=== PATIENT | female | born 1945 | race Caucasian/White ===

== ENCOUNTER 2020-07-31 09:28 | Outpatient (REF) | payer MEDICARE, SELFPAY ==
[2020-07-31 12:27] LABS: Alanine Aminotransferase 13 U/L (0-31); Anion Gap 16 (12-20); Aspartate Amino Transferase 22 U/L (5-31); Blood Urea Nitrogen 16 mg/dL (9-16); Calcium 9.3 mg/dL (8.4-10.2); Carbon Dioxide 26 mmol/L (22-29); Chloride 104 mmol/L (96-108); Cholesterol 137 mg/dL; Estimated Glomerular Filt Rate > 60; Glucose Fasting 150 mg/dL (60-99); HDL Cholesterol 56 mg/dL; LDL Cholesterol Calculated 65 mg/dl; Potassium 4.7 mmol/L (3.3-5.1); Sodium 141 mmol/L (135-145); Triglycerides 81 mg/dL
== END 2020-07-31 09:29 | disposition home or self-care (01) ==
LOC: HO.HMGCLDS 09:28
PROVIDERS: PCP Internal Medicine; Visit Provider Internal Medicine
DX: E11.65 Type 2 diabetes mellitus with hyperglycemia (principal); E11.29 Type 2 diabetes mellitus with other diabetic kidney complication; R80.9 Proteinuria, unspecified; E87.5 Hyperkalemia; E78.5 Hyperlipidemia, unspecified
CPT/HCPCS: 36415; 80048; 80061; 84450; 84460

== ENCOUNTER 2020-08-07 10:27 | Outpatient (REF) | payer MEDICARE, SELFPAY ==
--- NOTE | ~2020-08-07 | MM_ITS ---
EXAMINATION: MM SCREENING DIGITAL BREAST TOMOSYNTHESIS, BILATERAL CLINICAL INFORMATION: Screening. Asymptomatic. The lifetime risk of breast cancer based on the Tyrer-Cuzick Model is 3.5%. COMPARISON: Mammography: May 26, 2019 and studies dating back to April 21, 2012 TECHNIQUE: Digital breast tomosynthesis is performed in both the craniocaudal and mediolateral oblique views along with computer-aided detection (CAD). Synthesized 2D images are generated from the tomosynthesis. FINDINGS: There are scattered areas of fibroglandular density (ACR BI-RADS breast composition Category b). There are no significant masses, abnormal calcifications, or other abnormalities. MM/MM tomosynthesis screening BI IMPRESSION: There are no significant changes from prior study. ASSESSMENT: BI-RADS 1: Negative RECOMMENDATION: Routine annual mammography screening. This patient's information was entered into a reminder system with a target due date for their next mammogram.
== END 2020-08-07 10:28 | disposition home or self-care (01) ==
LOC: HO.MAMMO 10:27
PROVIDERS: Visit Provider Internal Medicine
DX: Z12.31 Encounter for screening mammogram for malignant neoplasm of breast (principal)
CPT/HCPCS: 77063; 77067

== ENCOUNTER 2021-02-04 08:57 | Outpatient (REF) | payer MEDICARE, SELFPAY ==
[2021-02-04 11:17] LABS: MANUAL DIFF FLAG NO
[2021-02-04 11:32] LABS: Basophils Absolute Auto 0.1 X10*3/uL (0.0-0.2); Basophils Percent Auto 0.9 % (0-2); Eosinophils Absolute Auto 0.4 X10*3/uL (0.0-0.4); Eosinophils Percent Auto 4.2 % (0-4); Hematocrit 36.8 % (37-47); Hemoglobin 11.5 g/dl (12.0-16.0); Imm Gran Abs Auto 0.02 X10*3/uL (0.00-0.03); Imm Gran Pct Auto 0.2 % (0.0-0.4); Lymphocytes Absolute Auto 3.1 X10*3/uL (1.2-4.9); Lymphocytes Percent Auto 35.7 % (20-40); Mean Corpuscular HGB Conc 31.3 g/dl (31.0-35.0); Mean Corpuscular Hemoglobin 27.4 pg (27.0-33.0); Mean Corpuscular Volume 87.6 fL (80-98); Mean Platelet Volume 10.9 fL (9.4-12.3); Monocytes Absolute Auto 0.8 X10*3/uL (0.1-1.2); Monocytes Percent Auto 9.2 % (2-11); Neutrophils Absolute Auto 4.4 X10*3/uL (2.0-8.3); Neutrophils Percent Auto 49.8 % (45-73); Platelet Count 326 X10*3/uL (160-400); Red Cell Distribution Width 14.9 % (11.0-16.0); White Blood Count 8.8 X10*3/uL (4.8-10.8)
[2021-02-04 11:41] LABS: Estimated Average Glucose 151 mg/dL; Hemoglobin A1c % 6.9 %
[2021-02-04 11:51] LABS: Alanine Aminotransferase 14 U/L (0-31); Albumin Level 4.4 g/dL (3.5-5.0); Alkaline Phosphatase 49 U/L (39-117); Anion Gap 16 (12-20); Aspartate Amino Transferase 21 U/L (5-31); Bilirubin Total 0.5 mg/dL (0.0-1.0); Blood Urea Nitrogen 21 mg/dL (9-16); Calcium 9.8 mg/dL (8.4-10.2); Carbon Dioxide 25 mmol/L (22-29); Chloride 105 mmol/L (96-108); Cholesterol 145 mg/dL; Estimated Glomerular Filt Rate 54; Glucose Fasting 149 mg/dL (60-99); HDL Cholesterol 58 mg/dL; LDL Cholesterol Calculated 66 mg/dl; Potassium 5.3 mmol/L (3.3-5.1); Sodium 141 mmol/L (135-145); Total Protein 6.9 g/dL (6.5-8.0); Triglycerides 108 mg/dL
[2021-02-04 12:15] LABS: TSH reflex Free T4 1.17 uIU/mL (0.32-4.0); Vitamin D 25-OH Total 44.3 ng/mL (>30)
== END 2021-02-04 08:58 | disposition home or self-care (01) ==
LOC: HO.HMGCLDS 08:57
PROVIDERS: PCP Internal Medicine; Visit Provider Internal Medicine
DX: E11.9 Type 2 diabetes mellitus without complications (principal); E78.5 Hyperlipidemia, unspecified; I10 Essential (primary) hypertension; Z78.0 Asymptomatic menopausal state
CPT/HCPCS: 36415; 80053; 80061; 82306; 83036; 84443; 85025

== ENCOUNTER 2021-07-22 09:10 | Outpatient (REF) | payer MEDICARE, SELFPAY ==
[2021-07-22 12:27] LABS: Alanine Aminotransferase 14 U/L (0-31); Anion Gap 12 (12-20); Aspartate Amino Transferase 19 U/L (5-31); Blood Urea Nitrogen 18 mg/dL (9-16); Calcium 9.7 mg/dL (8.4-10.2); Carbon Dioxide 26 mmol/L (22-29); Chloride 106 mmol/L (96-108); Cholesterol 141 mg/dL; Estimated Glomerular Filt Rate > 60; Glucose Fasting 178 mg/dL (60-99); HDL Cholesterol 59 mg/dL; LDL Cholesterol Calculated 63 mg/dl; Potassium 5.2 mmol/L (3.3-5.1); Sodium 139 mmol/L (135-145); Triglycerides 99 mg/dL
[2021-07-22 12:28] LABS: Vitamin D 25-OH Total 38.9 ng/mL (>30)
[2021-07-22 12:33] LABS: Creatinine Urine 104.02 mg/dL; Microalbum/Creatinine Ratio Ur 101.9 ug/mg cr
[2021-07-22 12:40] LABS: Estimated Average Glucose 163 mg/dL; Hemoglobin A1c % 7.3 %
== END 2021-07-22 09:11 | disposition home or self-care (01) ==
LOC: HO.HMGCLDS 09:10
PROVIDERS: PCP Internal Medicine; Visit Provider Internal Medicine
DX: E11.9 Type 2 diabetes mellitus without complications (principal); E78.5 Hyperlipidemia, unspecified; I10 Essential (primary) hypertension; Z78.0 Asymptomatic menopausal state
CPT/HCPCS: 36415; 80048; 80061; 82043; 82306; 83036; 84450; 84460

== ENCOUNTER 2021-08-13 10:33 | Outpatient (REF) | payer MEDICARE, SELFPAY ==
--- NOTE | ~2021-08-13 | MM_ITS ---
EXAMINATION: MM SCREENING DIGITAL BREAST TOMOSYNTHESIS, BILATERAL CLINICAL INFORMATION: Screening. Asymptomatic. The lifetime risk of breast cancer based on the Tyrer-Cuzick Model is 3%. COMPARISON: Mammography: 08/07/2020, 05/26/2019, 03/18/2018 TECHNIQUE: Digital breast tomosynthesis is performed in both the craniocaudal and mediolateral oblique views along with computer-aided detection (CAD). Synthesized 2D images are generated from the tomosynthesis. FINDINGS: There are scattered areas of fibroglandular density (ACR BI-RADS breast composition Category b). There are no significant masses, abnormal calcifications, or other abnormalities. Parenchymal pattern is similar to prior studies. There is no developing density or architectural abnormality. The axilla and skin contours are unremarkable. No significant changes. MM/MM tomosynthesis screening BI IMPRESSION: No mammographic evidence of malignancy. ASSESSMENT: BI-RADS 1: Negative RECOMMENDATION: Routine annual mammography screening. This patient's information was entered into a reminder system with a target due date for their next mammogram.
== END 2021-08-13 10:34 | disposition home or self-care (01) ==
LOC: HO.MAMMO 10:33
PROVIDERS: PCP Internal Medicine; Visit Provider Internal Medicine
DX: Z12.31 Encounter for screening mammogram for malignant neoplasm of breast (principal)
CPT/HCPCS: 77063; 77067

== ENCOUNTER 2022-02-01 13:11 | Outpatient (REF) | payer OTHER, MEDICARE, SELFPAY ==
--- NOTE | ~2022-02-01 | XR_ITS ---
EXAMINATION: XR RIBS, RIGHT CLINICAL INFORMATION: Probably linear COMPARISON: No prior exam available. TECHNIQUE: Chest frontal and 3 views oblique ribs. FINDINGS: RIBS: Nondisplaced subtle fracture anterior right eighth rib. LUNGS AND GOLDEN: Both lungs are clear. PLEURA: Normal. Costophrenic angles are sharp, no pneumothorax. HEART: The heart is normal in size. MEDIASTINUM: The mediastinum is within normal limits.. XR/XR ribs RT min 3V w CXR1V IMPRESSION: 1. Nondisplaced fracture right anterior eighth rib. 2. No radiographic evidence of acute cardiopulmonary disease.
== END 2022-02-01 13:12 | disposition home or self-care (01) ==
LOC: HO.HMGCX 13:11
PROVIDERS: PCP Internal Medicine; Visit Provider Physician Assistant
DX: R07.81 Pleurodynia (principal)
CPT/HCPCS: 71101

== ENCOUNTER 2022-05-28 08:49 | Outpatient (REF) | payer MEDICARE, SELFPAY ==
[2022-05-28 11:43] LABS: MANUAL DIFF FLAG NO
[2022-05-28 11:53] LABS: Basophils Absolute Auto 0.1 X10*3/uL (0.0-0.2); Basophils Percent Auto 1.1 % (0-2); Eosinophils Absolute Auto 0.5 X10*3/uL (0.0-0.4); Eosinophils Percent Auto 5.2 % (0-4); Hemoglobin 11.3 g/dl (12.0-16.0); Imm Gran Abs Auto 0.02 X10*3/uL (0.00-0.03); Imm Gran Pct Auto 0.2 % (0.0-0.4); Lymphocytes Absolute Auto 2.4 X10*3/uL (1.2-4.9); Lymphocytes Percent Auto 27.6 % (20-40); Mean Corpuscular HGB Conc 31.4 g/dl (31.0-35.0); Mean Corpuscular Hemoglobin 27.3 pg (27.0-33.0); Mean Platelet Volume 11.1 fL (9.4-12.3); Monocytes Absolute Auto 0.8 X10*3/uL (0.1-1.2); Monocytes Percent Auto 8.5 % (2-11); Neutrophils Absolute Auto 5.1 x10*3/uL (2.0-8.3); Neutrophils Percent Auto 57.4 % (45-73); Platelet Count 327 X10*3/uL (160-400); Red Blood Count 4.14 X10*6/uL (4.20-5.50); Red Cell Distribution Width 14.1 % (11.0-16.0); White Blood Count 8.8 X10*3/uL (4.8-10.8)
[2022-05-28 12:03] LABS: Creatinine Urine 107.89 mg/dL; Microalbum/Creatinine Ratio Ur 51.9 ug/mg cr
[2022-05-28 12:28] LABS: Alanine Aminotransferase 18 U/L (0-31); Anion Gap 11 (12-20); Aspartate Amino Transferase 20 U/L (5-31); Blood Urea Nitrogen 22 mg/dL (9-16); Calcium 9.8 mg/dL (8.4-10.2); Carbon Dioxide 29 mmol/L (22-29); Chloride 106 mmol/L (96-108); Cholesterol 152 mg/dL; Estimated Glomerular Filt Rate 57; Glucose Fasting 161 mg/dL (60-99); HDL Cholesterol 55 mg/dL; Iron 38 mcg/dL (30-160); LDL Cholesterol Calculated 75 mg/dl; Percent Iron Saturation 10 % (15-50); Sodium 141 mmol/L (135-145); Total Iron Binding Capacity 372 mcg/dL (228-428); Triglycerides 111 mg/dL; Unsaturated Iron Binding 334 ug/dL
[2022-05-28 12:31] LABS: Estimated Average Glucose 166 mg/dL; Hemoglobin A1c % 7.4 %
== END 2022-05-28 08:50 | disposition home or self-care (01) ==
LOC: HO.HMGCLDS 08:49
PROVIDERS: PCP Internal Medicine; Visit Provider Internal Medicine
DX: I10 Essential (primary) hypertension (principal); E78.5 Hyperlipidemia, unspecified; E11.9 Type 2 diabetes mellitus without complications
CPT/HCPCS: 36415; 80048; 80061; 82043; 83036; 83540; 84450; 84460; 85025

== ENCOUNTER 2022-08-18 10:16 | Outpatient (REF) | payer MEDICARE, OTHER, SELFPAY ==
--- NOTE | ~2022-08-18 | MM_ITS ---
EXAMINATION: MM SCREENING DIGITAL BREAST TOMOSYNTHESIS, BILATERAL CLINICAL INFORMATION: Screening. Asymptomatic. The lifetime risk of breast cancer based on the Tyrer-Cuzick Model is 6%. COMPARISON: Mammography: 08/13/2021, 08/07/2020, 05/26/2019, 03/18/2018, 11/03/2016, 09/06/2015, 08/21/2014 TECHNIQUE: Digital breast tomosynthesis is performed in both the craniocaudal and mediolateral oblique views along with computer-aided detection (CAD). Synthesized 2D images are generated from the tomosynthesis. Additional right MLO view is provided. FINDINGS: There are scattered areas of fibroglandular density (ACR BI-RADS breast composition Category b). Breast tissue composition borders on predominantly fatty. Background stromal markings are similar to prior exams. Small parenchymal density posterior medial left breast on CC view is similar to prior studies. There is no developing density or significant mass or architectural abnormality in either breast. The right breast has interval new benign scattered regional small oil cysts lower inner quadrant. There are no abnormal calcifications. The axilla are unremarkable. MM/MM tomosynthesis screening BI IMPRESSION: -No significant changes from prior exams. -Multiple small benign regional oil cysts right lower inner quadrant. ASSESSMENT: BI-RADS 2: Benign RECOMMENDATION: Routine annual mammography screening. This patient's information was entered into a reminder system with a target due date for their next mammogram.
== END 2022-08-18 10:17 | disposition home or self-care (01) ==
LOC: HO.MAMMO 10:16
PROVIDERS: PCP Internal Medicine; Visit Provider Internal Medicine
DX: Z12.31 Encounter for screening mammogram for malignant neoplasm of breast (principal)
CPT/HCPCS: 77063; 77067

== ENCOUNTER 2022-09-05 09:35 | Outpatient (REF) | payer MEDICARE, OTHER, SELFPAY ==
[2022-09-05 11:39] LABS: MANUAL DIFF FLAG NO
[2022-09-05 12:00] LABS: Basophils Absolute Auto 0.1 X10*3/uL (0.0-0.2); Basophils Percent Auto 1.2 % (0-2); Eosinophils Absolute Auto 0.3 X10*3/uL (0.0-0.4); Eosinophils Percent Auto 3.8 % (0-4); Hemoglobin 11.8 g/dl (12.0-16.0); Imm Gran Abs Auto 0.02 X10*3/uL (0.00-0.03); Imm Gran Pct Auto 0.2 % (0.0-0.4); Lymphocytes Absolute Auto 2.9 X10*3/uL (1.2-4.9); Lymphocytes Percent Auto 33.9 % (20-40); Mean Corpuscular HGB Conc 31.1 g/dl (31.0-35.0); Mean Corpuscular Hemoglobin 27.3 pg (27.0-33.0); Mean Corpuscular Volume 87.8 fL (80.0-98.0); Mean Platelet Volume 11.1 fL (9.4-12.3); Monocytes Absolute Auto 0.8 X10*3/uL (0.1-1.2); Monocytes Percent Auto 8.8 % (2-11); Neutrophils Absolute Auto 4.4 x10*3/uL (2.0-8.3); Neutrophils Percent Auto 52.1 % (45-73); Platelet Count 332 X10*3/uL (160-400); Red Blood Count 4.33 X10*6/uL (4.20-5.50); Red Cell Distribution Width 14.6 % (11.0-16.0); White Blood Count 8.5 X10*3/uL (4.8-10.8)
[2022-09-05 12:06] LABS: Estimated Average Glucose 166 mg/dL; Hemoglobin A1c % 7.4 %
[2022-09-05 12:17] LABS: Alanine Aminotransferase 20 U/L (0-31); Anion Gap 13 (12-20); Aspartate Amino Transferase 22 U/L (5-31); Blood Urea Nitrogen 21 mg/dL (9-16); Calcium 9.7 mg/dL (8.4-10.2); Carbon Dioxide 27 mmol/L (22-29); Chloride 105 mmol/L (96-108); Cholesterol 138 mg/dL; Estimated Glomerular Filt Rate > 60; Glucose Fasting 160 mg/dL (60-99); HDL Cholesterol 53 mg/dL; Iron 76 mcg/dL (30-160); LDL Cholesterol Calculated 66 mg/dl; Percent Iron Saturation 20 % (15-50); Potassium 5.1 mmol/L (3.3-5.1); Sodium 140 mmol/L (135-145); Total Iron Binding Capacity 384 mcg/dL (228-428); Triglycerides 95 mg/dL; Unsaturated Iron Binding 308 ug/dL
[2022-09-05 12:42] LABS: Vitamin D 25-OH Total 49.1 ng/mL (>30)
== END 2022-09-05 09:36 | disposition home or self-care (01) ==
LOC: HO.HMGCLDS 09:35
PROVIDERS: PCP Internal Medicine; Visit Provider Internal Medicine
DX: E11.65 Type 2 diabetes mellitus with hyperglycemia (principal); D64.9 Anemia, unspecified; E78.5 Hyperlipidemia, unspecified; I10 Essential (primary) hypertension; N95.9 Unspecified menopausal and perimenopausal disorder
CPT/HCPCS: 36415; 80048; 80061; 82306; 83036; 83540; 84450; 84460; 85025

== ENCOUNTER 2022-12-24 07:59 | Outpatient (REF) | payer MEDICARE, SELFPAY ==
[2022-12-24 11:14] LABS: MANUAL DIFF FLAG NO
[2022-12-24 11:34] LABS: Basophils Absolute Auto 0.1 X10*3/uL (0.0-0.2); Eosinophils Absolute Auto 0.6 X10*3/uL (0.0-0.4); Eosinophils Percent Auto 6.7 % (0-4); Hematocrit 36.7 % (37.0-47.0); Hemoglobin 11.6 g/dl (12.0-16.0); Imm Gran Abs Auto 0.02 X10*3/uL (0.00-0.03); Imm Gran Pct Auto 0.2 % (0.0-0.4); Lymphocytes Absolute Auto 3.2 X10*3/uL (1.2-4.9); Lymphocytes Percent Auto 37.1 % (20-40); Mean Corpuscular HGB Conc 31.6 g/dl (31.0-35.0); Mean Corpuscular Hemoglobin 27.9 pg (27.0-33.0); Mean Corpuscular Volume 88.2 fL (80.0-98.0); Mean Platelet Volume 11.3 fL (9.4-12.3); Monocytes Absolute Auto 0.8 X10*3/uL (0.1-1.2); Monocytes Percent Auto 8.9 % (2-11); Neutrophils Percent Auto 46.1 % (45-73); Platelet Count 281 X10*3/uL (160-400); Red Blood Count 4.16 X10*6/uL (4.20-5.50); Red Cell Distribution Width 14.3 % (11.0-16.0); White Blood Count 8.7 X10*3/uL (4.8-10.8)
[2022-12-24 11:38] LABS: Estimated Average Glucose 151 mg/dL; Hemoglobin A1c % 6.9 %
[2022-12-24 11:55] LABS: Alanine Aminotransferase 21 U/L (0-31); Anion Gap 12 (12-20); Aspartate Amino Transferase 23 U/L (5-31); Blood Urea Nitrogen 19 mg/dL (9-16); Calcium 9.3 mg/dL (8.4-10.2); Carbon Dioxide 27 mmol/L (22-29); Chloride 107 mmol/L (96-108); Cholesterol 153 mg/dL; Estimated Glomerular Filt Rate 55; Glucose Fasting 138 mg/dL (60-99); HDL Cholesterol 56 mg/dL; LDL Cholesterol Calculated 76 mg/dl; Potassium 4.5 mmol/L (3.3-5.1); Sodium 141 mmol/L (135-145); Triglycerides 108 mg/dL
== END 2022-12-24 08:00 | disposition home or self-care (01) ==
LOC: HO.HMGCLDS 07:59
PROVIDERS: PCP Internal Medicine; Visit Provider Internal Medicine
DX: E11.65 Type 2 diabetes mellitus with hyperglycemia (principal); D64.9 Anemia, unspecified; E78.5 Hyperlipidemia, unspecified; I10 Essential (primary) hypertension
CPT/HCPCS: 36415; 80048; 80061; 83036; 84450; 84460; 85025

== ENCOUNTER 2022-12-26 10:20 | Outpatient (AMB) | payer MEDICARE, SELFPAY ==
[2022-12-26 10:24] VITALS: BP 138/70; PULSE 80; O2SAT 98; BMI 27.3
--- NOTE | 2022-12-26 10:24 | A.OFFPC_ITS ---
Vital Signs 12/26/22 10:24 Height 5 ft 4 in Weight 159 lb BMI 27.3 BP 138/70 Blood Pressure Location Lt brachial Position Sitting Pulse 80 Pulse Source Pulse Oximeter Pulse Oximetry (%) 98 Intake Visit Reasons: follow up labs PT prefers in office visit Intake Note: pt is here for review of labs from Accompanied by: Self / Same As Patient Allergies No Known Allergies Allergy (Verified 12/26/22 11:17) Medication List - Last Reconciled 12/26/22 by Irene Cerda MD blood sugar diagnostic (FreeStyle Lite Strips) check fasting blood sugar in a.m. ferrous fumarate 325 mg PO DAILY glipizide 5 mg PO BID 90 days lancets (FreeStyle Lancets) Check fasting blood sugar once a day before meal lisinopril 5 mg PO DAILY metformin 1,000 mg PO BID polyethylene glycol 3350 (Miralax) 17 grams PO DAILY PRN simvastatin 10 mg PO BEDTIME Tobacco use date assessed: 09/08/22 Fall risk assessment: No Falls in past year Last assessed Fall Risk: 12/26/22 Dental Screening Dental Screen Date: 12/26/22 Did you have a dental visit in the last 12 months?: Yes Did you have a dental problem in the last 6 months where you did not have access to dental care?: No Was dental information given to patient?: Patient has dentist HPI follow up labs PT prefers in office visit HPI Details 77-year-old lady with diabetes mellitus, hypertension and dyslipidemia, here today for follow-up. He has been taking her medications as directed, has been compliant with her diet, with recent labs showing lipids, diabetes mellitus well controlled. Blood Pressure stable controlled as well on present medication. It was however noted that her CBC still shows presence of persistent anemia no change from previous tests done. Denies any abnormal bleeding seen, no black stools, no blood in urine. Denies any fatigue, no chest pain no headache or lightheadedness. She has never had a screening colonoscopy done has refused to have it done in the past. She also has been complaining of frequent constipation and intermittent epigastric pain, usually after food intake. [facility] Medical History (Updated 12/26/22 @ 11:18 by Irene Cerda MD) Anemia Chronic epigastric pain Constipation Diabetes mellitus, without long-term current use of insulin Dyslipidemia Essential hypertension Surgical History No pertinent past surgical history Social History Housing: House Alcohol intake: never Patient Tobacco Use Status: Never used Tobacco e-Cigarette/Vaping Use: Never Used service: No Current occupational status: retired Cognitive needs: No Hearing needs: No Vision needs: No Questionnaire Thrive Questionnaire Date Thrive assessed: 09/08/22 VICENTE-7 AMB Questionnaire VICENTE-7 Date VICENTE - 7 assessed: 09/08/22 Source: Developed by Drs. Poncho Parsons, Loyda Ho, Checo Parekh and colleagues, with an educational rachelle from [employer]. Review of Systems Const Denies body aches, Denies fatigue, Denies fever(s), Denies headache(s), Denies lethargy, Denies malaise and Denies weight loss Eyes Details: Goes to [facility] for her routine eye exam/diabetes retinopathy screening Denies change in vision ENT Denies vertigo, Denies dizziness, Denies headache(s), Denies nasal discharge, Denies post nasal drip, Denies sinus pressure and Denies sore throat Card Denies chest pain, Denies rapid heart rate, Denies irregular heart rhythm, Denies leg edema, Denies lightheadedness and Denies dyspnea Resp Denies cough, Denies dyspnea and Denies wheezing GI Reports as per HPI, Denies melena, Denies hematochezia, Denies early satiety, Denies nausea and Denies vomiting Denies urinary frequency, Denies difficulty voiding, Denies nipple discharge, Denies dysuria, Denies urinary incontinence and Denies urinary urgency Musc Denies arthralgias, Denies joint swelling, Denies numbness and Denies tingling Skin/Breast Denies breast swelling, Denies breast pain, Denies breast mass, Denies nipple discharge and Denies rash Neuro Denies Abnormal speech present, Denies vertigo, Denies dizziness, Denies headache(s), Denies numbness and Denies tingling Endo Reports no additional complaints, Denies fatigue, Denies heat intolerance, Denies polyphagia, Denies polydipsia and Denies polyuria Arvin/Lymph Denies easy bleeding and Denies easy bruising Aller/Immun Reports no additional complaints and Denies wheezing Physical exam (Primary Care) Vital Signs: Last Vital Signs Pulse 80 12/26/22 10:24 BP 138/70 12/26/22 10:24 Pulse Ox 98 12/26/22 10:24 BMI result Body Mass Index 27.3 Tobacco/Smoking Status: Tobacco use Status Tobacco use date assessed 09/08/22 12/26/22 10:25 Patient Tobacco Use Status Never used Tobacco 12/26/22 10:25 e-Cigarette/Vaping Use Never Used 12/26/22 10:25 Thrive Assessment: Date of Thrive Assessment Date Thrive assessed 09/08/22 12/26/22 10:25 Const Other: Alert oriented x3, no acute distress noted ambulatory with normal gait [facility] Mouth: Normal oral and palatal mucosa present and moist mucous membranes Eyes General: appearance normal, both eyes and all related structures Neck Neck: Yes full ROM, Yes no lymphadenopathy and Yes supple Resp Auscultation: clear to auscultation bilaterally Cardio Other: S1-S2 present regular rate and rhythm GI Palpation (GI): Soft to palpation, no guarding and no masses Skin General skin exam: no rashes or lesions noted Neuro General: gait normal, tone normal, moves all extremities, no focal motor deficits, CN's II-XI intact bilaterally and normal sensation to monofilament Speech: No Abnormal speech present Extrem General: Yes full ROM, Yes no joint enlargement, Yes no pedal edema and Yes normal gait Results Reviewed Results Reviewed: ENTERED: 12/24/22 REINA CORNELIUS: ORDERED: CBC Auto Diff Test Result Flag Reference Site WBC 8.7 4.8-10.8 X10*3/uL RBC 4.16 L 4.20-5.50 X10*6/uL HGB 11.6 L 12.0-16.0 g/dl HCT 36.7 L 37.0-47.0 % MCV 88.2 80.0-98.0 fL MCH 27.9 27.0-33.0 pg MCHC 31.6 31.0-35.0 g/dl RDW 14.3 11.0-16.0 % PLT 281 160-400 X10*3/uL MPV 11.3 9.4-12.3 fL Neut Pct Auto 46.1 45-73 % ImGran Pct Auto 0.2 0.0-0.4 % Lymp Pct Auto 37.1 20-40 % [place] Pct Auto 8.9 2-11 % Eos Pct Auto 6.7 H 0-4 % Baso Pct Auto 1.0 0-2 % NRBC Pct Auto 0.0 0.0-0.2 /100WBC ANC Neut Abs # 4.0 2.0-8.3 x10*3/uL ImGran Abs Auto 0.02 0.00-0.03 X10*3/uL Lymph Abs Auto 3.2 1.2-4.9 X10*3/uL [place] Abs Auto 0.8 0.1-1.2 X10*3/uL Eos Abs Auto 0.6 H 0.0-0.4 X10*3/uL Baso Abs Auto 0.1 0.0-0.2 X10*3/uL NRBC Abs Auto 0.000 0.0-0.012 X10*3/uL ENTERED: 12/24/22-[address] [facility] [address]: ORDERED: Met Prof Fast, AST, ALT, Lipid Panel Test Result Flag Reference Site Sodium 141 135-145 mmol/L Potassium 4.5 3.3-5.1 mmol/L CL 107 96-108 mmol/L CO2 27 22-29 mmol/L Gap 12 12-20 BUN 19 H 9-16 mg/dL Creat 0.99 0.5-1.4 mg/dL EGFR 55 NOTE: For -Burmese individuals, multiply the result by 1.210. Chronic Kidney Disease: Estimated GFR < 60 mL/min/1.73m2 Severe Kidney Disease: Estimated GFR < 15 mL/min/1.73m2 FBS 138 H 60-99 mg/dL A fasting glucose of 126 mg/dl or greater on more than one occasion is considered diagnostic of diabetes. CA 9.3 8.4-10.2 mg/dL AST (GOT) 23 5-31 U/L ALT (GPT) 21 0-31 U/L Triglyceride 108 mg/dL Desirable Triglyceride: less than 150 mg/dL Borderline High Triglyceride 150-199 mg/dL High Triglyceride: 200-499 mg/dL Very High Triglyceride: greater than or equal to 5OO mg/dL Chol 153 mg/dL Desirable Cholesterol: less than 200 mg/dL Borderline High Cholesterol: 200-239 mg/dL High Cholesterol: greater than 239 mg/dL LDL Calculated 76 mg/dl Desirable LDL: less than 100 mg/dL Near Optimal/Above Optimal LDL: 110-129 mg/dL Borderline High LDL: 130-159 mg/dL High LDL: 160-189 mg/dL Very High LDL: greater than or equal to 190 mg/dL HDL 56 mg/dL Desirable HDL: greater than 40 mg/dL Laboratory Tests 12/24/22 08:05 Estimat Average Glucose 151 Hemoglobin A1c % 6.9 Assessment and Plan Assessment & Plan (1) Chronic epigastric pain: Code(s): R10.13 - Epigastric pain; G89.29 - Other chronic pain Plan: Advised to try taking [id number] omeprazole mg daily. Advised to call if no improvement of symptoms noted after taking his foot least 10 days. Avoidance of eating a lot of acidic foods like tomatoes, spices, avoid greasy or oily foods. Gastroenterology referral ordered for further evaluation management (2) Anemia: Code(s): D64.9 - Anemia, unspecified Plan: Referred to GI for screening colonoscopy (3) Constipation: Code(s): K59.00 - Constipation, unspecified Plan: Advised to take docusate sodium, 100 mg per capsule taken daily, and may continue taking MiraLax as needed no bowel movements for after 2 days. KUB ordered (4) Essential hypertension: Code(s): I10 - Essential (primary) hypertension Plan: Blood pressure at goal of less than 130/80. Continue with current medication. Reinforced importance of following a low sodium diet, getting regular exercise, and lowering stress levels. (5) Dyslipidemia: Code(s): E78.5 - Hyperlipidemia, unspecified Plan: Reviewed recent fasting lipid profile with patient with levels within normal limits . Continue with , in addition to adherence to low-cholesterol diet and regular exercise, at least 30 minutes 3 to 4 times a week. Advised patient to make healthy food choices, eat more fruits, vegetables, whole grains, wild caught fish and low-fat dairy. Limit amount of meat and fried or fatty food products, as well as processed foods and fast foods. Follow-up scheduled with repeat fasting lipid panel in 3 months. (6) Diabetes mellitus, without long-term current use of insulin: Code(s): E11.9 - Type 2 diabetes mellitus without complications Plan: Recent lab results reviewed with patient, with sugar and hemoglobin A1c stable and at goal continue to check fasting blood sugar at home, maintain log and bring to next appointment for review. Reinforced diabetic diet and regular exercise with patient. Counseled regarding importance of yearly diabetes retinopathy screening. Patient advised to inspect feet daily, for any signs of injury, callus or infection. Compliance with diet and regular exercise again stressed. Blood pressure goal is less than 130/80, goal LDL is less than 100 and goal hemoglobin A1c is less than 7% follow-up appointment made in--3-months, after fasting labs done. Orders: Orders XR KUB 12/26/22 G89.29 - Other chronic pain, K59.00 - Constipation, unspecified, R10.13 - Epigastric pain Comprehensive [place]. Panel Fast 03/11/23 D64.9 - Anemia, unspecified, E11.9 - Type 2 diabetes mellitus without complications, E78.5 - Hyperlipidemia, unspecified, I10 - Essential (primary) hypertension Hemoglobin A1c 03/11/23 D64.9 - Anemia, unspecified, E11.9 - Type 2 diabetes mellitus without complications, E78.5 - Hyperlipidemia, unspecified, I10 - Essen tial (primary) hypertension IRON PROFILE 03/11/23 D64.9 - Anemia, unspecified, E11.9 - Type 2 diabetes mellitus without complications, E78.5 - Hyperlipidemia, unspecified, I10 - Essential (primary) hypertension Lipid Panel 03/11/23 D64.9 - Anemia, unspecified, E11.9 - Type 2 diabetes mellitus without complications, E78.5 - Hyperlipidemia, unspecified, I10 - Essential (primary) hypertension Complete Blood Count Auto Diff 03/11/23 D64.9 - Anemia, unspecified, E11.9 - Type 2 diabetes mellitus without complications, E78.5 - Hyperlipidemia, unspecified, I10 - Essential (primary) hypertension Referrals Gastroenterology Referral D64.9 - Anemia, unspecified, G89.29 - Other chronic pain, K59.00 - Constipation, unspecified, R10.13 - Epigastric pain, Z12.11 - Encounter for screening for malignant neoplasm of colon Medications: New docusate sodium 100 mg PO DAILY 90 caps 0RF Coding Level of Care Code Est Pt Level 4 (94439) Diagnoses Chronic epigastric pain R10.13; G89.29 Anemia D64.9 Constipation K59.00 Essential hypertension I10 Dyslipidemia E78.5 Diabetes mellitus, without long-term current use of insulin E11.9
== END 2022-12-26 11:18 | disposition home or self-care (01) ==
PROVIDERS: PCP Internal Medicine; Visit Provider Internal Medicine
DX: R10.13 Epigastric pain (principal); I10 Essential (primary) hypertension; E11.9 Type 2 diabetes mellitus without complications; G89.29 Other chronic pain; D64.9 Anemia, unspecified; K59.00 Constipation, unspecified; E78.5 Hyperlipidemia, unspecified
CPT/HCPCS: 99214

== ENCOUNTER 2022-12-26 11:17 | Outpatient (REF) | payer MEDICARE, SELFPAY ==
--- NOTE | ~2022-12-26 | XR_ITS ---
EXAMINATION: XR ABDOMEN KUB CLINICAL INDICATION: Constipation. COMPARISON: None available. TECHNIQUE: AP view of the abdomen. FINDINGS: There is a nonobstructive bowel gas pattern. Mild to moderate stool seen within the colon distally to the rectum. No abnormal calcifications are seen. Mild to moderate multilevel degenerative changes are seen in the thoracolumbar spine. Mild bilateral hip degenerative joint changes. XR/XR KUB IMPRESSION: 1. Nonobstructive bowel gas pattern. 2. Mild to moderate colonic stool burden.
== END 2022-12-26 11:18 | disposition home or self-care (01) ==
LOC: HO.HMGCX 11:17
PROVIDERS: PCP Internal Medicine; Visit Provider Internal Medicine
DX: R10.13 Epigastric pain (principal); G89.29 Other chronic pain; K59.00 Constipation, unspecified
CPT/HCPCS: 74018

== ENCOUNTER 2023-03-25 09:39 | Outpatient (REF) | payer MEDICARE, SELFPAY ==
[2023-03-25 11:20] LABS: MANUAL DIFF FLAG NO
[2023-03-25 12:04] LABS: Basophils Absolute Auto 0.1 X10*3/uL (0.0-0.2); Basophils Percent Auto 1.1 % (0-2); Eosinophils Absolute Auto 0.4 X10*3/uL (0.0-0.4); Hematocrit 38.2 % (37.0-47.0); Hemoglobin 12.1 g/dl (12.0-16.0); Imm Gran Abs Auto 0.03 X10*3/uL (0.00-0.03); Imm Gran Pct Auto 0.3 % (0.0-0.4); Lymphocytes Absolute Auto 3.1 X10*3/uL (1.2-4.9); Lymphocytes Percent Auto 33.4 % (20-40); Mean Corpuscular HGB Conc 31.7 g/dl (31.0-35.0); Mean Corpuscular Hemoglobin 28.5 pg (27.0-33.0); Mean Corpuscular Volume 89.9 fL (80.0-98.0); Mean Platelet Volume 11.5 fL (9.4-12.3); Monocytes Absolute Auto 0.8 X10*3/uL (0.1-1.2); Monocytes Percent Auto 8.7 % (2-11); Neutrophils Absolute Auto 4.8 x10*3/uL (2.0-8.3); Neutrophils Percent Auto 52.5 % (45-73); Platelet Count 311 X10*3/uL (160-400); Red Blood Count 4.25 X10*6/uL (4.20-5.50); Red Cell Distribution Width 14.2 % (11.0-16.0); White Blood Count 9.2 X10*3/uL (4.8-10.8)
[2023-03-25 12:11] LABS: Estimated Average Glucose 154 mg/dL
[2023-03-25 12:13] LABS: Alanine Aminotransferase 21 U/L (0-31); Albumin Level 4.2 g/dL (3.5-5.0); Alkaline Phosphatase 47 U/L (39-117); Anion Gap 12 (12-20); Aspartate Amino Transferase 23 U/L (5-31); Bilirubin Total 0.3 mg/dL (0.0-1.0); Blood Urea Nitrogen 18 mg/dL (9-16); Calcium 9.5 mg/dL (8.4-10.2); Carbon Dioxide 27 mmol/L (22-29); Chloride 107 mmol/L (96-108); Cholesterol 147 mg/dL (<200); Estimated Glomerular Filt Rate > 60; Glucose Fasting 152 mg/dL (60-99); HDL Cholesterol 54 mg/dL (>40); Iron 69 mcg/dL (30-160); LDL Cholesterol Calculated 74 mg/dL (<100); Percent Iron Saturation 20 % (15-50); Potassium 4.8 mmol/L (3.3-5.1); Sodium 141 mmol/L (135-145); Total Iron Binding Capacity 349 mcg/dL (228-428); Triglycerides 99 mg/dL (<150); Unsaturated Iron Binding 280 ug/dL
== END 2023-03-25 09:40 | disposition home or self-care (01) ==
LOC: HO.HMGCLDS 09:39
PROVIDERS: PCP Internal Medicine; Visit Provider Internal Medicine
DX: I10 Essential (primary) hypertension (principal); D64.9 Anemia, unspecified; E11.9 Type 2 diabetes mellitus without complications; E78.5 Hyperlipidemia, unspecified
CPT/HCPCS: 36415; 80053; 80061; 83036; 83540; 85025

== ENCOUNTER 2023-03-27 10:33 | Outpatient (AMB) | payer MEDICARE, SELFPAY ==
--- NOTE | 2023-03-27 10:44 | A.OFFPC_ITS ---
Vital Signs 03/27/23 10:45 Height 5 ft 4 in Weight 158 lb 6 oz BMI 27.2 BP 148/82 H Blood Pressure Location Rt brachial Position Sitting Pulse 75 Pulse Source Pulse Oximeter Pulse Oximetry (%) 100 Oxygen Delivery Method Room Air Intake Visit Reasons: 3 Month follow up Intake Note: pt is here to go over her lab results Allergies No Known Allergies Allergy (Verified 03/27/23 11:04) Medication List - Last Reconciled 03/27/23 by Irene Cerda MD blood sugar diagnostic (FreeStyle Lite Strips) check fasting blood sugar in a.m. ferrous fumarate 325 mg PO DAILY glipizide 5 mg PO BID 90 days lancets (FreeStyle Lancets) Check fasting blood sugar once a day before meal lisinopril 5 mg PO DAILY metformin 1,000 mg PO BID polyethylene glycol 3350 (Miralax) 17 grams PO DAILY PRN simvastatin 10 mg PO BEDTIME Tobacco use date assessed: 03/27/23 Fall risk assessment: No Falls in past year Last assessed Fall Risk: 03/27/23 Dental Screening Dental Screen Date: 03/27/23 Did you have a dental visit in the last 12 months?: Yes Did you have a dental problem in the last 6 months where you did not have access to dental care?: No Was dental information given to patient?: Patient has dentist HPI 3 Month follow up HPI Details 77-year-old lady with history of anemia, hypertension, dyslipidemia and diabetes mellitus, here today for her follow-up. She has been feeling well, compliant with taking her medications but admits to not getting any regular exercise. Recent fasting labs done showed lipids within normal limits, and no longer anemic, with normal iron levels. Her HBA1c however has increased from 6.9 to 7%. Already received her flu shot and her COVID booster, still has not had her Shingrix vaccination [facility] Medical History (Updated 03/27/23 @ 11:22 by Irene Cerda MD) Diabetes mellitus, without long-term current use of insulin Constipation Chronic epigastric pain Anemia Essential hypertension Dyslipidemia Surgical History No pertinent past surgical history Social History Housing: House Alcohol intake: never Patient Tobacco Use Status: Never used Tobacco e-Cigarette/Vaping Use: Never Used service: No Current occupational status: retired Cognitive needs: No Hearing needs: No Vision needs: No Questionnaire Thrive Questionnaire Date Thrive assessed: 09/08/22 VICENTE-7 AMB Questionnaire VICENTE-7 Date VICENTE - 7 assessed: 09/08/22 Source: Developed by Drs. Poncho Parsons, Loyda Ho, Checo Parekh and colleagues, with an educational rachelle from [email or web address]. Review of Systems Const Denies body aches, Denies fatigue, Denies fever(s), Denies headache(s), Denies lethargy, Denies malaise and Denies weight loss Eyes Details: Goes to [facility] for her routine eye exam/diabetes retinopathy screening Denies change in vision ENT Denies vertigo, Denies dizziness, Denies headache(s), Denies nasal discharge, Denies post nasal drip, Denies sinus pressure and Denies sore throat Card Denies chest pain, Denies rapid heart rate, Denies irregular heart rhythm, Denies leg edema, Denies lightheadedness and Denies dyspnea Resp Denies cough, Denies dyspnea and Denies wheezing GI Reports as per HPI, Denies melena, Denies hematochezia, Denies early satiety, Denies nausea and Denies vomiting Denies urinary frequency, Denies difficulty voiding, Denies nipple discharge, Denies dysuria, Denies urinary incontinence and Denies urinary urgency Musc Denies arthralgias, Denies joint swelling, Denies numbness and Denies tingling Skin/Breast Denies breast swelling, Denies breast pain, Denies breast mass, Denies nipple discharge and Denies rash Neuro Denies Abnormal speech present, Denies vertigo, Denies dizziness, Denies headache(s), Denies numbness and Denies tingling Psych Reports no additional complaints Endo Reports no additional complaints, Denies fatigue, Denies heat intolerance, Denies polyphagia, Denies polydipsia and Denies polyuria Arvin/Lymph Denies easy bleeding and Denies easy bruising Aller/Immun Reports no additional complaints and Denies wheezing Physical exam (Primary Care) Vital Signs: Last Vital Signs Pulse 75 03/27/23 10:45 BP 148/82 H 03/27/23 10:45 Pulse Ox 100 03/27/23 10:45 Oxygen Delivery Method Room Air 03/27/23 10:45 BMI result Body Mass Index 27.2 Tobacco/Smoking Status: Tobacco use Status Tobacco use date assessed 03/27/23 03/27/23 10:50 Patient Tobacco Use Status Never used Tobacco 03/27/23 10:44 e-Cigarette/Vaping Use Never Used 03/27/23 10:44 Thrive Assessment: Date of Thrive Assessment Date Thrive assessed 09/08/22 03/27/23 10:44 Const Other: Alert oriented x3, no acute distress noted ambulatory with normal gait HENAZ Mouth: Normal oral and palatal mucosa present and moist mucous membranes Eyes General: appearance normal, both eyes and all related structures Neck Neck: Yes full ROM, Yes no lymphadenopathy and Yes supple Resp Auscultation: clear to auscultation bilaterally Cardio Other: S1-S2 present regular rate and rhythm GI Palpation (GI): Soft to palpation, no guarding and no masses General: Yes no CVA tenderness Back/Spine/Pelvis Back: no CVA tenderness and No back tenderness Skin General skin exam: no rashes or lesions noted Neuro General: gait normal, tone normal, moves all extremities, no focal motor deficits, CN's II-XI intact bilaterally and normal sensation to monofilament Speech: No Abnormal speech present Extrem General: Yes full ROM, Yes no joint enlargement, Yes no pedal edema and Yes normal gait Results Reviewed Results Reviewed: ENTERED: 03/25/[address] [facility] DR: ORDERED: CBC Auto Diff Test Result Flag Reference Site WBC 9.2 4.8-10.8 X10*3/uL RBC 4.25 4.20-5.50 X10*6/uL HGB 12.1 12.0-16.0 g/dl HCT 38.2 37.0-47.0 % MCV 89.9 80.0-98.0 fL MCH 28.5 27.0-33.0 pg MCHC 31.7 31.0-35.0 g/dl RDW 14.2 11.0-16.0 % PLT 311 160-400 X10*3/uL SPEC : [id number] TUTU: 03/25/23 STATUS: COMP REQ : [id number] RECD: 03/25/[address]: Irene Cerda MD COMP: 03/25/23-1213 ENTERED: 03/25/23 [facility] [address]: ORDERED: CMP Fast, IRON PROF, Lipid Panel Test Result Flag Reference Site Sodium 141 135-145 mmol/L Potassium 4.8 3.3-5.1 mmol/L CL 107 96-108 mmol/L CO2 27 22-29 mmol/L Gap 12 12-20 BUN 18 H 9-16 mg/dL Creat 0.87 0.5-1.4 mg/dL EGFR > 60 NOTE: For -[place] individuals, multiply the result by 1.210. Chronic Kidney Disease: Estimated GFR < 60 mL/min/1.73m2 Severe Kidney Disease: Estimated GFR < 15 mL/min/1.73m2 FBS 152 H 60-99 mg/dL A fasting glucose of 126 mg/dl or greater on more than one occasion is considered diagnostic of diabetes. CA 9.5 8.4-10.2 mg/dL Iron 69 30-160 mcg/dL TIBC 349 228-428 mcg/dL Saturation 20 15-50 % UIBC 280 ug/dL Total Bili 0.3 0.0-1.0 mg/dL AST (GOT) 23 5-31 U/L ALT (GPT) 21 0-31 U/L Protein, Total 7.0 6.5-8.0 g/dL Alb 4.2 3.5-5.0 g/dL Triglyceride 99 <150 mg/dL Desirable Triglyceride: less than 150 mg/dL Borderline High Triglyceride 150-199 mg/dL High Triglyceride: 200-499 mg/dL Very High Triglyceride: greater than or equal to 5OO mg/dL Cholesterol 147 <200 mg/dL Desirable Cholesterol: less than 200 mg/dL Borderline High Cholesterol: 200-239 mg/dL High Cholesterol: greater than 239 mg/dL LDL Calculated 74 <100 mg/dL Desirable LDL: less than 100 mg/dL Near Optimal/Above Optimal LDL: 110-129 mg/dL Borderline High LDL: 130-159 mg/dL High LDL: 160-189 mg/dL Very High LDL: greater than or equal to 190 mg/dL HDL 54 >40 mg/dL Desirable HDL: greater than 40 mg/dL Note: This HDL assay may give artificially low results in patients with liver disease. Alk Phos 47 39-117 U/L Laboratory Tests 03/25/23 09:43 Estimat Average Glucose 154 Hemoglobin A1c % 7.0 H Assessment and Plan Assessment & Plan (1) Diabetes mellitus, without long-term current use of insulin: Code(s): E11.9 - Type 2 diabetes mellitus without complications Plan: See at 7%, continued metformin 1000 mg 1 tablet twice a day in addition to glipizide 5 mg 1 tablet twice a day with meals reinforced importance of adhering to a diabetic diet and getting regular exercise. Up-to-date with her diabetes retinopathy screening. (2) Essential hypertension: Code(s): I10 - Essential (primary) hypertension Plan: Systolic blood pressure elevated on this visit, reinforced importance of following a low-salt diet, will continue on lisinopril 5 mg 1 daily and have her come back to get blood pressure checked with nurse navigator in a week (3) Dyslipidemia: Code(s): E78.5 - Hyperlipidemia, unspecified Plan: Fasting lipid panel are within normal limits, continue with current dose of simvastatin 10 mg at bedtime. Coding Level of Care Code Est Pt Level 4 (33670) Diagnoses Diabetes mellitus, without long-term current use of insulin E11.9 Essential hypertension I10 Dyslipidemia E78.5
[2023-03-27 10:45] VITALS: BP 148/82; PULSE 75; O2SAT 100; BMI 27.2
== END 2023-03-27 11:12 | disposition home or self-care (01) ==
PROVIDERS: PCP Internal Medicine; Visit Provider Internal Medicine
DX: E11.9 Type 2 diabetes mellitus without complications (principal); I10 Essential (primary) hypertension; E78.5 Hyperlipidemia, unspecified
CPT/HCPCS: 99214

== ENCOUNTER 2023-09-10 12:36 | Outpatient (REF) | payer MEDICARE, SELFPAY ==
--- NOTE | ~2023-09-10 | MM_ITS ---
EXAMINATION: MM SCREENING DIGITAL BREAST TOMOSYNTHESIS, BILATERAL CLINICAL INFORMATION: Screening. Asymptomatic. COMPARISON: Mammography: This study is compared with prior exams dating back to 2018. TECHNIQUE: Digital breast tomosynthesis is performed in both the craniocaudal and mediolateral oblique views along with computer-aided detection (CAD). Synthesized 2D images are generated from the tomosynthesis. FINDINGS: The breasts are almost entirely fatty (ACR BI-RADS breast composition Category a). There are no significant masses, abnormal calcifications, or other abnormalities. There multiple, benign oil cysts in the medial aspect of the left breast. MM/MM tomosynthesis screening BI IMPRESSION: No mammographic evidence of malignancy. ASSESSMENT: BI-RADS BI-RADS 2 - Benign Findings RECOMMENDATION: Routine annual mammography screening. 1 year F/U This examination should not preclude the clinical evaluation of a suspicious palpable abnormality. This patient's information was entered into a reminder system with a target due date for their next mammogram.
== END 2023-09-10 12:37 | disposition home or self-care (01) ==
LOC: HO.MAMMO 12:36
PROVIDERS: PCP Internal Medicine; Visit Provider Internal Medicine
DX: Z12.31 Encounter for screening mammogram for malignant neoplasm of breast (principal)
CPT/HCPCS: 77063; 77067

== ENCOUNTER → 2023-09-10 13:00 | Outpatient (BNV) | payer MEDICARE, SELFPAY | PROVIDERS: PCP Internal Medicine; Visit Provider Radiology Diagnostic Radiology | DX: Z12.31 Encounter for screening mammogram for malignant neoplasm of breast (principal) | CPT/HCPCS: 77063; 77067 ==

== ENCOUNTER 2023-09-25 09:03 | Outpatient (REF) | payer MEDICARE, SELFPAY ==
[2023-09-25 10:54] LABS: Estimated Average Glucose 163 mg/dL; Hemoglobin A1c % 7.3 % (<6.0)
[2023-09-25 11:12] LABS: Alanine Aminotransferase 16 U/L (0-31); Anion Gap 14 (12-20); Aspartate Amino Transferase 21 U/L (5-31); Blood Urea Nitrogen 18 mg/dL (9-16); Calcium 9.6 mg/dL (8.4-10.2); Carbon Dioxide 27 mmol/L (22-29); Chloride 104 mmol/L (96-108); Cholesterol 143 mg/dL (<200); Estimated Glomerular Filt Rate 60; Glucose Fasting 155 mg/dL (60-99); HDL Cholesterol 56 mg/dL (>40); LDL Cholesterol Calculated 65 mg/dL (<100); Potassium 5.1 mmol/L (3.3-5.1); Sodium 140 mmol/L (135-145); Triglycerides 113 mg/dL (<150)
[2023-09-25 11:29] LABS: Vitamin D 25-OH Total 52.9 ng/mL (>30)
[2023-09-25 11:34] LABS: Creatinine Urine 102.79 mg/dL
== END 2023-09-25 09:04 | disposition home or self-care (01) ==
LOC: HO.HMGCLDS 09:03
PROVIDERS: PCP Internal Medicine; Visit Provider Internal Medicine
DX: E78.5 Hyperlipidemia, unspecified (principal); I10 Essential (primary) hypertension; E11.9 Type 2 diabetes mellitus without complications
CPT/HCPCS: 36415; 80048; 80061; 82043; 82306; 82570; 83036; 84450; 84460

== ENCOUNTER 2023-09-28 10:33 | Outpatient (AMB) | payer MEDICARE, SELFPAY ==
--- NOTE | 2023-09-28 10:37 | MHC.PC.OV ---
Vital Signs 09/28/23 10:41 Height 5 ft 4 in Weight 156 lb BMI 26.8 BP 135/75 Blood Pressure Location Rt brachial Position Sitting Pulse 72 Pulse Source Pulse Oximeter Pulse Oximetry (%) 98 Oxygen Delivery Method Room Air Intake Visit Reasons: 6 Month F/U Intake Note: Pt is here today for her 6 months Allergies No Known Allergies Allergy (Verified 10/05/23 04:32) Medication List - Last Reconciled 10/05/23 by Irene Cerda MD blood sugar diagnostic (FreeStyle Lite Strips) check fasting blood sugar in a.m. ferrous fumarate 325 mg PO DAILY glipizide 5 mg PO BID 90 days lancets (FreeStyle Lancets) Check fasting blood sugar once a day before meal lisinopril 5 mg PO DAILY metformin 1,000 mg PO BID polyethylene glycol 3350 (Miralax) 17 grams PO DAILY PRN simvastatin 10 mg PO BEDTIME Tobacco use date assessed: 09/28/23 Fall risk assessment: No Falls in past year Last assessed Fall Risk: 09/28/23 Dental Screening Dental Screen Date: 09/28/23 Did you have a dental visit in the last 12 months?: Yes Did you have a dental problem in the last 6 months where you did not have access to dental care?: No Was dental information given to patient?: Patient has dentist HPI 6 Month F/U HPI Details 77-year-old lady here today for follow-up on her diabetes mellitus and hyperlipidemia as well as hypertension. She has been taking her medications, but admits to not having followed recommended diet over the last 3 months and has not been very active. Recent fasting labs showed results within normal limits except for higher A1c from 7-7.3%. [facility] Medical History (Updated 09/28/23 @ 10:59 by Irene Cerda MD) Diabetes mellitus, without long-term current use of insulin Constipation Chronic epigastric pain Anemia Essential hypertension Dyslipidemia Surgical History No pertinent past surgical history Social History Housing: House Alcohol intake: never Patient Tobacco Use Status: Never used Tobacco e-Cigarette/Vaping Use: Never Used service: No Current occupational status: retired Cognitive needs: No Hearing needs: No Vision needs: No Questionnaire PHQ-9 Over the last 2 weeks, how often have you been bothered by any of the following problems? 1. Little interest or pleasure in doing things: not at all 2. Feeling down, depressed, or hopeless: not at all 3. Trouble falling or staying asleep, or sleeping too much: not at all 4. Feeling tired or having little energy: not at all 5. Poor appetite or overeating: not at all 6. Feeling bad about yourself - or that you are a failure or have let yourself or your family down: not at all 7. Trouble concentrating on things, such as reading the newspaper or watching television: not at all 8. Moving or speaking so slowly that other people could have noticed. Or the opposite - being so fidgety or restless that you have been moving around a lot more than usual: not at all 9. Thoughts that you would be better off or of hurting yourself in some way: not at all Total score: 0 Depression Screening Interpretation: Negative Depression Screening Done: Yes 96068 - PHQ-9 Billing: Yes Source: Developed by Drs. Poncho Parsons, Loyda Ho, Checo Parekh and colleagues, with an educational rachelle from [employer]. Thrive Questionnaire Date Thrive assessed: 09/28/23 I am a: Patient What is your living situation today?: I have a steady place to live Within the past 12 months, did the food you bought not last and you didn't have the money to get more?: Never true Within the past 12 months, did you worry whether your food would run out before you got money to buy more?: Never true Do you have trouble paying for medicines?: No Do you have trouble getting transportation to medical appointments?: No Do you have trouble paying your heating and electricity bill?: No Do you have trouble taking care of your child, family member or friend?: No Do you have trouble with day-to-day activities such as bathing, preparing meals, shopping, managing finances, etc.?: No Are you currently unemployed and looking for a job?: No Are you interested in more education?: No THRIVE Score: 0 AUDIT C Alcohol Use Questionnaire (AUDIT-C) 1. How often do you have a drink containing alcohol?: Never Total Score: 0 VICENTE-7 AMB Questionnaire VICENTE-7 Date VICENTE - 7 assessed: 09/28/23 Feeling nervous, anxious, or on edge: 0 = Not at all Not being able to stop or control worryin = Not at all Worrying too much about different things: 0 = Not at all Trouble relaxin = Not at all Being so restless that it is hard to sit still: 0 = Not at all Becoming easily annoyed or irritable: 0 = Not at all Feeling afraid as if something awful might happen: 0 = Not at all Total VICENTE-7 score (0-4 normal; 5-9 mild; 10-14 moderate; 15-21 severe): 0 Source: Developed by Drs. Poncho Parsons, Loyda Ho, Checo Parekh and colleagues, with an educational rachelle from [employer]. VICENTE-7 Assessment Billing VICENTE-7 Assessment Tool: VICENTE-7 Assessment 33653 Review of Systems Const Denies body aches, Denies fatigue, Denies fever(s), Denies headache(s), Denies lethargy, Denies malaise and Denies weight loss Eyes Details: Goes to [facility] for her routine eye exam/diabetes retinopathy screening Denies change in vision ENT Denies vertigo, Denies dizziness, Denies headache(s), Denies nasal discharge, Denies post nasal drip, Denies sinus pressure and Denies sore throat Card Denies chest pain, Denies rapid heart rate, Denies irregular heart rhythm, Denies leg edema, Denies lightheadedness and Denies dyspnea Resp Denies cough, Denies dyspnea and Denies wheezing GI Reports as per HPI, Denies melena, Denies hematochezia, Denies early satiety, Denies nausea and Denies vomiting Denies urinary frequency, Denies difficulty voiding, Denies nipple discharge, Denies dysuria, Denies urinary incontinence and Denies urinary urgency Musc Denies arthralgias, Denies joint swelling, Denies numbness and Denies tingling Skin/Breast Denies breast swelling, Denies breast pain, Denies breast mass, Denies nipple discharge and Denies rash Neuro Denies Abnormal speech present, Denies vertigo, Denies dizziness, Denies headache(s), Denies numbness and Denies tingling Psych Reports no additional complaints Endo Reports no additional complaints, Denies fatigue, Denies heat intolerance, Denies polyphagia, Denies polydipsia and Denies polyuria Arvin/Lymph Denies easy bleeding and Denies easy bruising Aller/Immun Reports no additional complaints and Denies wheezing Physical exam (Primary Care) Vital Signs: Last Vital Signs Pulse 72 09/28/23 10:41 BP 135/75 09/28/23 10:41 Pulse Ox 98 09/28/23 10:41 Oxygen Delivery Method Room Air 09/28/23 10:41 BMI result Body Mass Index 26.8 Tobacco/Smoking Status: Tobacco use Status Tobacco use date assessed 09/28/23 09/28/23 10:42 Patient Tobacco Use Status Never used Tobacco 09/28/23 10:38 e-Cigarette/Vaping Use Never Used 09/28/23 10:38 PHQ-9: PHQ-9 Score PHQ-9: Total score 0 09/28/23 10:58 Depression Screening Interpretation: Negative Thrive Assessment: Date of Thrive Assessment Date Thrive assessed 09/28/23 09/28/23 10:43 Const Other: Alert oriented x3, no acute distress noted ambulatory with normal gait HENNH Mouth: Normal oral and palatal mucosa present and moist mucous membranes Eyes General: appearance normal, both eyes and all related structures Neck Neck: Yes full ROM, Yes no lymphadenopathy and Yes supple Resp Auscultation: clear to auscultation bilaterally Cardio Other: S1-S2 present regular rate and rhythm GI Palpation (GI): Soft to palpation, no guarding and no masses General: Yes no CVA tenderness Back/Spine/Pelvis Back: no CVA tenderness and No back tenderness Skin General skin exam: no rashes or lesions noted Neuro General: gait normal, tone normal, moves all extremities, no focal motor deficits, CN's II-XI intact bilaterally and normal sensation to monofilament Speech: No Abnormal speech present Extrem General: Yes full ROM, Yes no joint enlargement, Yes no pedal edema and Yes normal gait Results Reviewed Results Reviewed: Name: Eveline Ortiz Age/Sex: 77/F : 1945 Unit#: [id number] Attend Dr: Irene Cerda MD Re09/25/23 Status: DEP REF Location: [facility] Disch: SPEC : [id number] TUTU: 09/25/23 STATUS: COMP REQ : [id number] RECD: 09/25/23-[address]: Irene Cerda MD COMP: 09/25/23 ENTERED: 09/25/[address] [facility] DR: ORDERED: Met Prof Fast, AST, ALT, Lipid Panel, Vitamin D 25-OH Test Result Flag Reference Sodium 140 135-145 mmol/L Potassium 5.1 3.3-5.1 mmol/L CL 104 96-108 mmol/L CO2 27 22-29 mmol/L Gap 14 12-20 BUN 18 H 9-16 mg/dL Creat 0.92 0.5-1.4 mg/dL EGFR 60 NOTE: For -Malagasy individuals, multiply the result by 1.210. Chronic Kidney Disease: Estimated GFR < 60 mL/min/1.73m2 Severe Kidney Disease: Estimated GFR < 15 mL/min/1.73m2 FBS 155 H 60-99 mg/dL A fasting glucose of 126 mg/dl or greater on more than one occasion is considered diagnostic of diabetes. CA 9.6 8.4-10.2 mg/dL AST (GOT) 21 5-31 U/L ALT (GPT) 16 0-31 U/L Triglyceride 113 <150 mg/dL Desirable Triglyceride: less than 150 mg/dL Borderline High Triglyceride 150-199 mg/dL High Triglyceride: 200-499 mg/dL Very High Triglyceride: greater than or equal to 5OO mg/dL Cholesterol 143 <200 mg/dL Desirable Cholesterol: less than 200 mg/dL Borderline High Cholesterol: 200-239 mg/dL High Cholesterol: greater than 239 mg/dL LDL Calculated 65 <100 mg/dL Desirable LDL: less than 100 mg/dL Near Optimal/Above Optimal LDL: 110-129 mg/dL Borderline High LDL: 130-159 mg/dL High LDL: 160-189 mg/dL Very High LDL: greater than or equal to 190 mg/dL HDL 56 >40 mg/dL Desirable HDL: greater than 40 mg/dL Note: This HDL assay may give artificially low results in patients with liver disease. Vit D 25-OH Tot 52.9 >30 ng/mL Health Based Reference Values* < 20 ng/mL Deficient 20-30 ng/mL Insufficient > 30 ng/mL Sufficient Laboratory Tests 09/25/23 09:10 Estimat Average Glucose 163 Hemoglobin A1c % 7.3 H Urine Creatinine 102.79 Urine Microalbumin 72.0 Microalb/Creat Ratio 70.0 H Assessment and Plan Assessment & Plan (1) Dyslipidemia: Code(s): E78.5 - Hyperlipidemia, unspecified Plan: Reviewed recent fasting lipid profile with patient with levels within normal limit . Continue with simvastatin 10 mg at bedtime , in addition to adherence to low-cholesterol diet and regular exercise, at least 30 minutes 3 to 4 times a week. Advised patient to make healthy food choices, eat more fruits, vegetables, whole grains, wild caught fish and low-fat dairy. Limit amount of meat and fried or fatty food products, as well as processed foods and fast foods. Follow-up scheduled with repeat fasting lipid panel in 6 months. (2) Essential hypertension: Code(s): I10 - Essential (primary) hypertension Plan: Blood pressure within normal limits (3) Diabetes mellitus, without long-term current use of insulin: Code(s): E11.9 - Type 2 diabetes mellitus without complications Plan: Recent lab results reviewed with patient, with sugar and hemoglobin A1c not at goal. Will continue on metformin a 1000 mg 1 tablet twice a day, and stressed importance of following diabetic diet and getting regular exercise . Counseled regarding importance of yearly diabetes retinopathy screening. Patient advised to inspect feet daily, for any signs of injury, callus or infection. Compliance with diet and regular exercise again stressed. Blood pressure goal is less than 130/80, goal LDL is less than 100 and goal hemoglobin A1c is less than 7% follow-up appointment made in--6-months, after fasting labs done. (4) History of anemia: Code(s): Z86.2 - Personal history of diseases of the blood and blood-forming organs and certain disorders involving the immune mechanism Plan: Will repeat another CBC in six-month Orders: Orders Hemoglobin A1c 03/20/24 E11.9 - Type 2 diabetes mellitus without complications, E78.5 - Hyperlipidemia, unspecified, I10 - Essential (primary) hypertension, Z78.0 - Asymptomatic menopausal state, Z86.2 - Personal history of diseases of the blood and blood-forming organs and certain disorders involving the immune mechanism Alanine Aminotransferase 03/20/24 E11.9 - Type 2 diabetes mellitus without complications, E78.5 - Hyperlipidemia, unspecified, I10 - Essential (primary) hypertension, Z78.0 - Asymptomatic menopausal state, Z86.2 - Personal history of diseases of the blood and blood-forming organs and certain disorders involving the immune mechanism Vitamin D 25-OH Total 03/20/24 E11.9 - Type 2 diabetes mellitus without complications, E78.5 - Hyperlipidemia, unspecified, I10 - Essential (primary) hypertension, Z78.0 - Asymptomatic menopausal state, Z86.2 - Personal history of diseases of the blood and blood-forming organs and certain disorders involving the immune mechanism Complete Blood Count Auto Diff 03/20/24 E11.9 - Type 2 diabetes mellitus without complications, E78.5 - Hyperlipidemia, unspecified, I10 - Essential (primary) hypertension, Z78.0 - Asymptomatic menopausal state, Z86.2 - Personal history of diseases of the blood and blood-forming organs and certain disorders involving the immune mechanism Aspartate Amino Transferase 03/20/24 E11.9 - Type 2 diabetes mellitus without complications, E78.5 - Hyperlipidemia, unspecified, I10 - Essential (primary) hypertension, Z78.0 - Asymptomatic menopausal state, Z86.2 - Personal history of diseases of the blood and blood-forming organs and certain disorders involving the immune mechanism Basic Metabolic Panel Fasting 03/20/24 E11.9 - Type 2 diabetes mellitus without complications, E78.5 - Hyperlipidemia, unspecified, I10 - Essential (primary) hypertension, Z78.0 - Asymptomatic menopausal state, Z86.2 - Personal history of diseases of the blood and blood-forming organs and certain disorders involving the immune mechanism Lipid Panel 03/20/24 E11.9 - Type 2 diabetes mellitus without complications, E78.5 - Hyperlipidemia, unspecified, I10 - Essential (primary) hypertension, Z78.0 - Asymptomatic menopausal state, Z86.2 - Personal history of diseases of the blood and blood-forming organs and certain disorders involving the immune mechanism Coding Level of Care Code Est Pt Level 4 (90941) Diagnoses Dyslipidemia E78.5 Essential hypertension I10 Diabetes mellitus, without long-term current use of insulin E11.9 History of anemia Z86.2 Additional Codes VICENTE-7 Assessment Billing - VICENTE-7 Assessment Tool: VICENTE-7 Assessment 10314 ([id number])
[2023-09-28 10:41] VITALS: BP 135/75; PULSE 72; O2SAT 98; BMI 26.8
== END 2023-09-28 10:59 | disposition home or self-care (01) ==
PROVIDERS: PCP Internal Medicine; Visit Provider Internal Medicine
DX: E11.69 Type 2 diabetes mellitus with other specified complication (principal); E78.5 Hyperlipidemia, unspecified; I10 Essential (primary) hypertension; Z86.2 Personal history of diseases of the blood and blood-forming organs and certain disorders involving the immune mechanism
CPT/HCPCS: 99214

== ENCOUNTER 2024-03-28 08:51 | Outpatient (REF) | payer MEDICARE, SELFPAY ==
[2024-03-28 09:59] LABS: MANUAL DIFF FLAG NO
[2024-03-28 10:25] LABS: Basophils Absolute Auto 0.1 X10*3/uL (0.0-0.2); Basophils Percent Auto 0.9 % (0-2); Eosinophils Absolute Auto 0.2 X10*3/uL (0.0-0.4); Eosinophils Percent Auto 2.5 % (0-4); Hematocrit 36.2 % (37.0-47.0); Hemoglobin 11.6 g/dl (12.0-16.0); Imm Gran Abs Auto 0.02 X10*3/uL (0.00-0.03); Imm Gran Pct Auto 0.2 % (0.0-0.4); Lymphocytes Absolute Auto 2.7 X10*3/uL (1.2-4.9); Lymphocytes Percent Auto 31.3 % (20-40); Mean Corpuscular Hemoglobin 28.7 pg (27.0-33.0); Mean Corpuscular Volume 89.6 fL (80.0-98.0); Mean Platelet Volume 10.5 fL (9.4-12.3); Monocytes Absolute Auto 0.6 X10*3/uL (0.1-1.2); Monocytes Percent Auto 7.2 % (2-11); Neutrophils Percent Auto 57.9 % (45-73); Platelet Count 312 X10*3/uL (160-400); Red Blood Count 4.04 X10*6/uL (4.20-5.50); Red Cell Distribution Width 13.7 % (11.0-16.0); White Blood Count 8.6 X10*3/uL (4.8-10.8)
[2024-03-28 10:26] LABS: Estimated Average Glucose 157 mg/dL; Hemoglobin A1C 163.8572 umol/L; Hemoglobin A1c % 7.1 % (<6.0); Total Hemoglobin (HGBA1C) 3054.7788 umol/L
[2024-03-28 10:42] LABS: Alanine Aminotransferase 26 U/L (0-31); Anion Gap 14 (12-20); Aspartate Amino Transferase 30 U/L (5-31); Blood Urea Nitrogen 22 mg/dL (9-16); Calcium 9.8 mg/dL (8.4-10.2); Carbon Dioxide 26 mmol/L (22-29); Chloride 106 mmol/L (96-108); Cholesterol 126 mg/dL (<200); Estimated Glomerular Filt Rate 53; Glucose Fasting 155 mg/dL (60-99); HDL Cholesterol 57 mg/dL (>40); LDL Cholesterol Calculated 55 mg/dL (<100); Potassium 4.9 mmol/L (3.3-5.1); Sodium 141 mmol/L (135-145); Triglycerides 70 mg/dL (<150)
== END 2024-03-28 08:52 | disposition home or self-care (01) ==
LOC: HO.HMGCLDS 08:51
PROVIDERS: PCP Internal Medicine; Visit Provider Internal Medicine
DX: I10 Essential (primary) hypertension (principal); E11.9 Type 2 diabetes mellitus without complications; E78.5 Hyperlipidemia, unspecified; Z86.2 Personal history of diseases of the blood and blood-forming organs and certain disorders involving the immune mechanism; Z78.0 Asymptomatic menopausal state
CPT/HCPCS: 36415; 80048; 80061; 82306; 83036; 84450; 84460; 85025

== ENCOUNTER 2024-03-31 08:58 | Outpatient (AMB) | payer MEDICARE, SELFPAY ==
--- NOTE | 2024-03-31 09:32 | MHC.PC.OV ---
Vital Signs 03/31/24 09:34 Height 5 ft 4 in Weight 153 lb BMI 26.3 BP 136/80 Blood Pressure Location Rt brachial Position Sitting Pulse 71 Pulse Source Pulse Oximeter Pulse Oximetry (%) 96 Oxygen Delivery Method Room Air Intake Visit Reasons: 6 Month F/U Intake Note: Pt is here today for her 6mo. f/u labs Allergies No Known Allergies Allergy (Verified 03/31/24 09:55) Medication List - Last Reconciled 03/31/24 by Irene Cerda MD blood sugar diagnostic (FreeStyle Lite Strips) check fasting blood sugar in a.m. cholecalciferol (vitamin D3) 50 mcg PO DAILY ferrous fumarate 325 mg PO DAILY glipizide 5 mg PO BID 90 days lancets (FreeStyle Lancets) Check fasting blood sugar once a day before meal lisinopril 5 mg PO DAILY metformin 1,000 mg PO BID polyethylene glycol 3350 (Miralax) 17 grams PO DAILY PRN simvastatin 10 mg PO BEDTIME Tobacco use date assessed: 03/31/24 Fall risk assessment: No Falls in past year Last assessed Fall Risk: 03/31/24 Dental Screening Dental Screen Date: 03/31/24 Did you have a dental visit in the last 12 months?: No Did you have a dental problem in the last 6 months where you did not have access to dental care?: No Was dental information given to patient?: Patient has dentist HPI 6 Month F/U HPI Details The patient is a 78-year-old female presenting for a follow up of her diabetes mellitus, hypercholesterolemia, anemia, and constipation. Her diabetes has been managed with Metformin 1000 mg twice daily , Glipizide 5 mg/tablet taken twice a day with meals , and diet modification,with her latest HbA1c at 7.1%, slightly above the target of below 7%, but lower than ,last check. Hypercholesterolemia is being treated with Simvastatin 10 mg nightly, showing improvement in cholesterol levels with LDL now at 55, better than last visit. The patient has experienced ongoing anemia, fluctuating around 12 g/dL, with intercurrent iron therapy. Despite this, her hemoglobin levels continue to drop periodically without clear etiology and without previous colonoscopy evaluation. She is also on Lisinopril 5 mg daily for hypertension, and recent blood pressure readings were 136/80 mmHg, slightly above the target. The patient reports issues with constipation, occasionally relieved by MiraLax usage, and dietary modifications including high fiber intake through oatmeal and occasional fruit consumption. She is compliant with her medications and walks daily for exercise. Discussed need to have colon cancer screening with colonoscopy , has never had one, but patient still hesitant to get colonoscopy at present, states she'll think about it . She is up todate with her screening mammogram , but overdue for a bone density scan. Last done in 2018 which showed normal bone density in Lumbar spine, left femur and left femoral neck. [facility] Medical History Normocytic anemia Diabetes mellitus, without long-term current use of insulin Constipation Essential hypertension Dyslipidemia Surgical History No pertinent past surgical history Social History Housing: House Alcohol intake: never Patient Tobacco Use Status: Never used Tobacco e-Cigarette/Vaping Use: Never Used service: No Current occupational status: retired Cognitive needs: No Hearing needs: No Vision needs: No Questionnaire PHQ-9 Over the last 2 weeks, how often have you been bothered by any of the following problems? Depression Screening Interpretation: Negative Depression Screening Done: Yes Source: Developed by Drs. Poncho Parsons, Loyda Ho, Checo Parekh and colleagues, with an educational rachelle from [employer]. Thrive Questionnaire Date Thrive assessed: 09/28/23 VICENTE-7 AMB Questionnaire VICENTE-7 Date VICENTE - 7 assessed: 09/28/23 Source: Developed by Drs. Poncho Parsons, Loyda Ho, Checo Parekh and colleagues, with an educational rachelle from [employer]. Review of Systems Const Denies body aches, Denies fatigue, Denies fever(s), Denies lethargy and Denies malaise Eyes Details: Goes to [facility] for her routine eye exam/diabetes retinopathy screening Denies change in vision Card Denies chest pain, Denies rapid heart rate, Denies irregular heart rhythm, Denies leg edema, Denies lightheadedness and Denies dyspnea Resp Denies cough, Denies dyspnea and Denies wheezing GI Denies melena, Denies hematochezia, Denies early satiety, Denies nausea and Denies vomiting Denies urinary frequency, Denies difficulty voiding, Denies nipple discharge, Denies dysuria, Denies urinary incontinence and Denies urinary urgency Musc Denies joint swelling, Denies numbness and Denies tingling Skin/Breast Denies breast swelling, Denies breast pain, Denies breast mass, Denies nipple discharge and Denies rash Neuro Denies Abnormal speech present, Denies numbness and Denies tingling Psych Reports no additional complaints Endo Reports no additional complaints, Denies fatigue, Denies heat intolerance, Denies polyphagia, Denies polydipsia and Denies polyuria Arvin/Lymph Denies easy bleeding and Denies easy bruising Aller/Immun Reports no additional complaints and Denies wheezing Physical exam (Primary Care) Vital Signs: Last Vital Signs Pulse 71 03/31/24 09:34 BP 136/80 03/31/24 09:34 Pulse Ox 96 03/31/24 09:34 Oxygen Delivery Method Room Air 03/31/24 09:34 BMI result Body Mass Index 26.3 Tobacco/Smoking Status: Tobacco use Status Tobacco use date assessed 03/31/24 03/31/24 09:37 Patient Tobacco Use Status Never used Tobacco 03/31/24 09:37 e-Cigarette/Vaping Use Never Used 03/31/24 09:37 Depression Screening Interpretation: Negative Thrive Assessment: Date of Thrive Assessment Date Thrive assessed 09/28/23 03/31/24 09:37 Const Other: Alert oriented x3, no acute distress noted ambulatory with normal gait [facility] Mouth: Normal oral and palatal mucosa present and moist mucous membranes Eyes General: appearance normal, both eyes and all related structures Neck Neck: Yes full ROM, Yes no lymphadenopathy and Yes supple Resp Auscultation: clear to auscultation bilaterally Cardio Other: S1-S2 present regular rate and rhythm GI Palpation (GI): Soft to palpation, no guarding and no masses General: Yes no CVA tenderness Back/Spine/Pelvis Back: no CVA tenderness and No back tenderness Skin General skin exam: no rashes or lesions noted Neuro General: gait normal, tone normal, moves all extremities, no focal motor deficits, CN's II-XI intact bilaterally and normal sensation to monofilament Speech: No Abnormal speech present Extrem General: Yes full ROM, Yes no joint enlargement, Yes no pedal edema and Yes normal gait Results Reviewed Results Reviewed: Name: Eveline Ortiz Age/Sex: 78/F : 1945 Unit#: [id number] Attend Dr: Irene Cerda MD Re03/28/24 Status: DEP REF Location: [facility] Disch: SPEC : [id number] TUTU: 03/28/24 STATUS: COMP REQ : [id number] RECD: 03/28/[address]: Irene Cerda MD COMP: 03/28/24 ENTERED: 03/28/[address]: ORDERED: CBC Auto Diff Test Result Flag Reference Name: Eveline Ortiz Age/Sex: 78/F : 1945 Unit#: [id number] Attend Dr: Irene Cerda MD Re03/28/24 Status: DEP REF Location: [facility] [place] Disch: SPEC : [id number] TUTU: 03/28/24 STATUS: COMP REQ : [id number] RECD: 03/28/[address]: Irene Cerda MD COMP: 03/28/24 ENTERED: 03/28/[address]: ORDERED: Met Prof Fast, AST, ALT, Lipid Panel, Vitamin D 25-OH Test Result Flag Reference Sodium 141 135-145 mmol/L Potassium 4.9 3.3-5.1 mmol/L CL 106 96-108 mmol/L CO2 26 22-29 mmol/L Gap 14 12-20 BUN 22 H 9-16 mg/dL Creat 1.01 0.5-1.4 mg/dL eGFR 53 Chronic Kidney Disease: Estimated GFR < 60 mL/min/1.73m2 Severe Kidney Disease: Estimated GFR < 15 mL/min/1.73m2 FBS 155 H 60-99 mg/dL A fasting glucose of 126 mg/dl or greater on more than one occasion is considered diagnostic of diabetes. CA 9.8 8.4-10.2 mg/dL AST (GOT) 30 5-31 U/L ALT (GPT) 26 0-31 U/L Triglyceride 70 <150 mg/dL Desirable Triglyceride: less than 150 mg/dL Borderline High Triglyceride 150-199 mg/dL High Triglyceride: 200-499 mg/dL Very High Triglyceride: greater than or equal to 5OO mg/dL Cholesterol 126 <200 mg/dL Desirable Cholesterol: less than 200 mg/dL Borderline High Cholesterol: 200-239 mg/dL High Cholesterol: greater than 239 mg/dL LDL Calculated 55 <100 mg/dL Desirable LDL: less than 100 mg/dL Near Optimal/Above Optimal LDL: 110-129 mg/dL Borderline High LDL: 130-159 mg/dL High LDL: 160-189 mg/dL Very High LDL: greater than or equal to 190 mg/dL HDL 57 >40 mg/dL Desirable HDL: greater than 40 mg/dL Note: This HDL assay may give artificially low results in patients with liver disease. Vit D 25-OH Tot 51.0 >30 ng/mL Health Based Reference Values* < 20 ng/mL Deficient 20-30 ng/mL Insufficient > 30 ng/mL Sufficient WBC 8.6 4.8-10.8 X10*3/uL RBC 4.04 L 4.20-5.50 X10*6/uL HGB 11.6 L 12.0-16.0 g/dl HCT 36.2 L 37.0-47.0 % MCV 89.6 80.0-98.0 fL MCH 28.7 27.0-33.0 pg MCHC 32.0 31.0-35.0 g/dl RDW 13.7 11.0-16.0 % PLT 312 160-400 X10*3/uL MPV 10.5 9.4-12.3 fL Neut Pct Auto 57.9 45-73 % ImGran Pct Auto 0.2 0.0-0.4 % Lymp Pct Auto 31.3 20-40 % Johnson Pct Auto 7.2 2-11 % Eos Pct Auto 2.5 0-4 % Baso Pct Auto 0.9 0-2 % NRBC Pct Auto 0.0 0.0-0.2 /100WBC ANC Neut Abs # 5.0 2.0-8.3 x10*3/uL ImGran Abs Auto 0.02 0.00-0.03 X10*3/uL Lymph Abs Auto 2.7 1.2-4.9 X10*3/uL Johnson Abs Auto 0.6 0.1-1.2 X10*3/uL Eos Abs Auto 0.2 0.0-0.4 X10*3/uL Baso Abs Auto 0.1 0.0-0.2 X10*3/uL NRBC Abs Auto 0.000 0.0-0.012 X10*3/uL Coding Level of Care Code Est Pt Level 4 (35231) Complex EM visit Add On G2211 Diagnoses Dyslipidemia E78.5 Essential hypertension I10 Diabetes mellitus, without long-term current use of insulin E11.9 Normocytic anemia D64.9 Screening for osteoporosis Z13.820 Assessment & Plan Assessment & Plan (1) Dyslipidemia: Code(s): E78.5 - Hyperlipidemia, unspecified Category: Medical (2) Essential hypertension: Code(s): I10 - Essential (primary) hypertension Category: Medical (3) Diabetes mellitus, without long-term current use of insulin: Code(s): E11.9 - Type 2 diabetes mellitus without complications Category: Medical (4) Normocytic anemia: Code(s): D64.9 - Anemia, unspecified Category: Medical (5) Screening for osteoporosis: Code(s): Z13.820 - Encounter for screening for osteoporosis Plan - Diabetes Mellitus: Continue Metformin 1000 mg twice daily and Glipizide 5 mg/tablet 1 tablet twice a da with meals . Encourage more frequent exercise and dietary modifications, specifically reducing sugar intake. - Hypercholesterolemia: Continue Simvastatin 10 mg nightly. Monitor blood lipid levels in 6 months . - Anemia: Recommend colonoscopy to investigate potential sources of bleeding or other causes for the anemia. continue ferrous sulfate daily - Hypertension: Continue Lisinopril 5 mg daily. Monitor blood pressure, aim to further reduce to target below 130/80 mmHg. - Constipation: Increase dietary fiber through oatmeal and prunes. Reduce banana intake and consider more berries, dietary fiber . - Vaccinations: Follow up on insurance coverage for shingles vaccine; administer high-dose flu shot at next opportunity. - ordered a Bone density scan for 09/15/24 , together with scheduled screening mammogram Patient was informed and verbally consented to the use of an ambient scribe for clinic note documentation during this visit. Orders: Orders XR DEXA axial skeleton Today Z13.820 - Encounter for screening for osteoporosis, Z78.0 - Asymptomatic menopausal state Complete Blood Count Auto Diff 09/08/24 D64.9 - Anemia, unspecified, E11.9 - Type 2 diabetes mellitus without complications, E78.5 - Hyperlipidemia, unspecified, I10 - Essential (primary) hypertension IRON PROFILE 09/08/24 D64.9 - Anemia, unspecified, E11.9 - Type 2 diabetes mellitus without complications, E78.5 - Hyperlipidemia, unspecified, I10 - Essential (primary) hypertension Hemoglobin A1c 09/08/24 D64.9 - Anemia, unspecified, E11.9 - Type 2 diabetes mellitus without complications, E78.5 - Hyperlipidemia, unspecified, I10 - Essential (primary) hypertension Vitamin D 25-OH Total 09/08/24 D64.9 - Anemia, unspecified, E11.9 - Type 2 diabetes mellitus without complications, E78.5 - Hyperlipidemia, unspecified, I10 - Essential (primary) hypertension Lipid Panel 09/08/24 D64.9 - Anemia, unspecified, E11.9 - Type 2 diabetes mellitus without complications, E78.5 - Hyperlipidemia, unspecified, I10 - Essential (primary) hypertension Basic Metabolic Panel Fasting 09/08/24 D64.9 - Anemia, unspecified, E11.9 - Type 2 diabetes mellitus without complications, E78.5 - Hyperlipidemia, unspecified, I10 - Essential (primary) hypertension Alanine Aminotransferase 09/08/24 D64.9 - Anemia, unspecified, E11.9 - Type 2 diabetes mellitus without complications, E78.5 - Hyperlipidemia, unspecified, I10 - Essential (primary) hypertension Aspartate Amino Transferase 09/08/24 D64.9 - Anemia, unspecified, E11.9 - Type 2 diabetes mellitus without complications, E78.5 - Hyperlipidemia, unspecified, I10 - Essential (primary) hypertension Microalbumin, Random (w Creat) 09/08/24 D64.9 - Anemia, unspecified, E11.9 - Type 2 diabetes mellitus without complications, E78.5 - Hyperlipidemia, unspecified, I10 - Essential (primary) hypertension
[2024-03-31 09:34] VITALS: BP 136/80; PULSE 71; O2SAT 96; BMI 26.3
== END 2024-03-31 10:17 | disposition home or self-care (01) ==
PROVIDERS: PCP Internal Medicine; Visit Provider Internal Medicine
DX: E78.5 Hyperlipidemia, unspecified (principal); I10 Essential (primary) hypertension; E11.9 Type 2 diabetes mellitus without complications; D64.9 Anemia, unspecified; Z13.820 Encounter for screening for osteoporosis

== ENCOUNTER → 2024-03-31 08:58 | Outpatient (BNVA) | payer MEDICARE, SELFPAY | PROVIDERS: PCP Internal Medicine; Visit Provider Internal Medicine | DX: E78.5 Hyperlipidemia, unspecified (principal); I10 Essential (primary) hypertension; E11.9 Type 2 diabetes mellitus without complications; D64.9 Anemia, unspecified | CPT/HCPCS: 99212 ==

== ENCOUNTER 2024-09-15 12:09 | Outpatient (REF) | payer MEDICARE, SELFPAY ==
--- NOTE | ~2024-09-15 | MM_ITS ---
EXAMINATION: DXA BONE DENSITY AXIAL HISTORY: Z78.0 - Asymptomatic menopausal state TECHNIQUE: Ornicept Dual energy absorptiometry (DEXA) of the lumbar spine, total left hip, and femoral neck was performed. COMPARISON: Comparison is made with the prior examination dated 03/25/2018. FINDINGS: The bone mineral density of the lumbar spine is 1.213 with a T-score of 0.3, and a Z-score of 2.0. This is indicative of normal bone mineral density. This represents a BMD change of 3.1% compared to the prior exam. This is statistically significant. The bone mineral density of the left total hip is 0.940 with a T-score of -0.5, and a Z-score of 1.2. This is indicative of normal bone mineral density. This represents a BMD change of -1.9% compared to the prior exam. This is not statistically significant. The bone mineral density of the left femoral neck is 0.880 with a T-score of -1.1, and a Z-score of 0.8. This is indicative of osteopenia. This represents a BMD change of -3.3% compared to the prior exam. FRACTURE RISK: The FRAX index suggests a ten year probability of major osteoporotic fracture of 10.9%, and of hip fracture 1.9%. MM/XR DEXA axial skeleton IMPRESSION: Based on bone mineral density, and according to World Health Organization (WHO) criteria, the diagnosis is consistent with osteopenia. All bone density values are in grams per centimeter squared (g/cm2). Statistically, 68% of repeat scans fall within 1 SD (+/- 0.010 g/cm2 for AP spine L1-L4) and 1 SD (+/- 0.012 g/cm2 for femur total) FRAX is a trademark of the [employer] [facility] [employer], a World Health Organization (WHO) Collaborating Center. Electronically signed by: Poncho Benjamin MD 09/15/2024 01:37 PM EDT
== END 2024-09-15 12:10 | disposition home or self-care (01) ==
LOC: HO.MAMMO 12:09
PROVIDERS: PCP Internal Medicine; Visit Provider Internal Medicine
DX: Z12.31 Encounter for screening mammogram for malignant neoplasm of breast (principal); Z13.820 Encounter for screening for osteoporosis; Z78.0 Asymptomatic menopausal state
CPT/HCPCS: 77063; 77067; 77080

== ENCOUNTER → 2024-09-15 13:00 | Outpatient (BNV) | payer MEDICARE, SELFPAY | PROVIDERS: PCP Internal Medicine; Visit Provider Radiology Diagnostic Radiology | DX: Z12.31 Encounter for screening mammogram for malignant neoplasm of breast (principal) | CPT/HCPCS: 77063; 77067 ==

== ENCOUNTER 2024-09-24 08:22 | Outpatient (REF) | payer MEDICARE, SELFPAY ==
[2024-09-24 11:16] LABS: MANUAL DIFF FLAG NO
[2024-09-24 11:35] LABS: Basophils Absolute Auto 0.1 X10*3/uL (0.0-0.2); Basophils Percent Auto 1.1 % (0-2); Eosinophils Absolute Auto 0.3 X10*3/uL (0.0-0.4); Eosinophils Percent Auto 3.5 % (0-4); Hemoglobin 11.5 g/dl (12.0-16.0); Imm Gran Abs Auto 0.02 X10*3/uL (0.00-0.03); Imm Gran Pct Auto 0.3 % (0.0-0.4); Lymphocytes Absolute Auto 2.5 X10*3/uL (1.2-4.9); Lymphocytes Percent Auto 31.6 % (20-40); Mean Corpuscular HGB Conc 31.9 g/dl (31.0-35.0); Mean Corpuscular Hemoglobin 28.7 pg (27.0-33.0); Mean Corpuscular Volume 89.8 fL (80.0-98.0); Mean Platelet Volume 10.5 fL (9.4-12.3); Monocytes Absolute Auto 0.8 X10*3/uL (0.1-1.2); Monocytes Percent Auto 9.9 % (2-11); Neutrophils Absolute Auto 4.3 x10*3/uL (2.0-8.3); Neutrophils Percent Auto 53.6 % (45-73); Platelet Count 301 X10*3/uL (160-400); Red Blood Count 4.01 X10*6/uL (4.20-5.50); Red Cell Distribution Width 14.1 % (11.0-16.0)
[2024-09-24 11:41] LABS: Estimated Average Glucose 160 mg/dL; Hemoglobin A1C 165.8064 umol/L; Hemoglobin A1c % 7.2 % (<6.0); Total Hemoglobin (HGBA1C) 3027.0092 umol/L
[2024-09-24 11:43] LABS: Alanine Aminotransferase 18 U/L (0-31); Anion Gap 14 (12-20); Aspartate Amino Transferase 25 U/L (5-31); Blood Urea Nitrogen 22 mg/dL (9-16); Calcium 9.5 mg/dL (8.4-10.2); Carbon Dioxide 25 mmol/L (22-29); Chloride 107 mmol/L (96-108); Cholesterol 133 mg/dL (<200); Estimated Glomerular Filt Rate > 60; Glucose Fasting 149 mg/dL (60-99); HDL Cholesterol 59 mg/dL (>40); Iron 76 mcg/dL (30-160); LDL Cholesterol Calculated 58 mg/dL (<100); Percent Iron Saturation 22 % (15-50); Potassium 5.2 mmol/L (3.3-5.1); Sodium 141 mmol/L (135-145); Total Iron Binding Capacity 353 mcg/dL (228-428); Triglycerides 81 mg/dL (<150); Unsaturated Iron Binding 277 ug/dL
[2024-09-24 11:57] LABS: Creatinine Urine 110.13 mg/dL; Microalbum/Creatinine Ratio Ur 85.3 ug/mg cr (<30)
[2024-09-24 11:59] LABS: Vitamin D 25-OH Total 53.2 ng/mL (>30)
== END 2024-09-24 08:23 | disposition home or self-care (01) ==
LOC: HO.HMGCLDS 08:22
PROVIDERS: PCP Internal Medicine; Visit Provider Internal Medicine
DX: E11.9 Type 2 diabetes mellitus without complications (principal); I10 Essential (primary) hypertension; E78.5 Hyperlipidemia, unspecified; D64.9 Anemia, unspecified
CPT/HCPCS: 36415; 80048; 80061; 82043; 82306; 82570; 83036; 83540; 84450; 84460; 85025

== ENCOUNTER 2024-09-27 09:14 | Outpatient (AMB) | payer MEDICARE, SELFPAY ==
--- NOTE | 2024-09-27 09:16 | AM.OFFVISMDC ---
Intake Vital Signs 09/27/24 09:23 Height 5 ft 4 in Weight 153 lb BMI 26.3 BP 124/72 Blood Pressure Location Rt brachial Position Sitting Respiration 16 Pulse 76 Pulse Source Pulse Oximeter Temp 98.1 F Temp Source Oral Pulse Oximetry (%) 95 Oxygen Delivery Method Room Air Intake Visit Reasons: SWV G0439 Intake Note: Pt is here today for her SWV: Last mammogram 09/15/24, bone density scan 09/15/24 Allergies No Known Allergies Allergy (Verified 09/27/24 10:33) Medication List - Last Reconciled 09/27/24 by Irene Cerda MD blood sugar diagnostic (FreeStyle Lite Strips) USE 1 STRIP TO CHECK FASTING BLOOD GLUCOSE ONCE DAILY IN THE MORNING cholecalciferol (vitamin D3) 50 mcg PO DAILY ferrous fumarate 325 mg PO DAILY glipizide 5 mg PO BID 90 days lancets (FreeStyle Lancets) Check fasting blood sugar once a day before meal lisinopril 5 mg PO DAILY metformin 1,000 mg PO BID polyethylene glycol 3350 (Miralax) 17 grams PO DAILY PRN simvastatin 10 mg PO BEDTIME HPI SWV G0439 HPI Details SWV ? 78-year-old lady with diabetes mellitus, hypertension, normocytic normochromic anemia, and dyslipidemia, here today for year old presents for her subsequent annual wellness visit?. Up-to-date with her screening mammogram, done 10/05/2024 with normal findings, had a bone density scan done the same day which showed normal bone density in her lower back and left femur with a beginning osteopenia in her left femoral neck with a T-score of -1.1. No history of fractures. Had a normal fasting lipid panel done 09/24/2024 and hemoglobin A1c done same day was at 7.2% with a fasting blood sugar at 149 mg/dL. No longer gets Pap smears, never had a screening colonoscopy done, but patient willing to have a colonoscopy procedure scheduled now. She gets her yearly flu shots, has had 3 COVID vaccines does not want to get the booster, up-to-date with her pneumococcal vaccination, has not yet had the Shingrix vaccine or RSV. ? Medical / Social History Reviewed? Past Medical History ?Yes . ? [place] of Care / Care Team list updated ?Yes . ? Surgical/Hospitalization History ?Yes . ? Current Medications (including OTC and supplements) ?Yes . ? Family History ?Yes . ? Tobacco Control form ?Yes . ? AUDIT-C (Alcohol use) form ?Yes . ? Illicit drug use in Social History ?Yes . ? Current diagnosis of depression? ?No ? Appropriate PHQ2/PHQ9 completed ?Yes . ? Data entered by ?Gambling Supervisor and reviewed by provider ? Fall Risk ? Fall History? Have you had any falls with injury in the past year? ?No . ? Have you had two or more falls in the past year? ?No . ? Fall Risk Assessment: ?No falls in the past year . ? HRA filled out by the patient, reviewed by Provider and scanned. ?SWV ? Balance? Romberg ?negative. ? Tandem walk ?Yes . ? Walk and Turn ?Yes . ? Rise from sit to stand ?Yes . ?Vision? Corrective lens none ? Vision screen ? Up-to-date, she goes to [facility], patient states she just was seen there July 2024 with no abnormality seen ?Hearing? Whisper test ?pass . ?Written Plan?Completed. See Patient Documents.? [facility] Medical History (Updated 09/27/24 @ 10:43 by Irene Cerda MD) Diabetes mellitus with microalbuminuria, without long-term current use of insulin Normocytic anemia Constipation Essential hypertension Dyslipidemia Surgical History No pertinent past surgical history Social History Housing: House Alcohol intake: never Patient Tobacco Use Status: Never used Tobacco e-Cigarette/Vaping Use: Never Used service: No Current occupational status: retired Cognitive needs: No Hearing needs: No Vision needs: No Questionnaire Medicare Wellness Checkup [age] What gender do you identify with?: female During the past 4 weeks, how much have you been bothered by emotional problems such as feeling anxious, depressed, irritable, sad or downhearted, and blue?: not at all During the past 4 weeks, has your physical & emotional health limited your social activities with family, friends, neighbors, or groups?: not at all During the past 4 weeks, how much bodily pain have you generally had?: no pain During the past 4 weeks, was someone available to help you if you needed & wanted help?: yes, as much as I wanted During the past 4 weeks, what was the hardest physical activity you could do for at least 2 minutes?: moderate Can you get to places out of walking distance without help? (For eg., can you travel alone on buses, taxis or drive your car?): Yes Can you go shopping for groceries or clothes without someone's help?: Yes Can you do your housework without help?: Yes Because of any health problems, do you need the help of another person with your personal care needs such as eating, bathing, dressing or getting around the house?: No Can you handle your own money without help?: Yes During the past 4 weeks, how would you rate your health in general?: very good During the past 4 weeks how have things been going for you?: pretty well Are you having difficulties driving your car?: no Do you always fasten your seat belt when you are in a car?: yes, usually During past 4 weeks, have you been bothered by the following: never: Falling or dizzy when standing up, Sexual problems?, Trouble eating well?, Teeth or denture problems?, Problems using the telephone? and Tiredness or fatigue? Have you fallen 2 or more times in the past year?: No Are you afraid of falling?: No Are you a smoker?: no During the past 4 weeks, how many drinks of wine, beer, or other alcoholic beverages did you have?: no alcohol at all Do you exercise for about 20 minutes 3 or more times a week?: yes, some of the time Have you been given information to help with the following?: yes: Hazards in your house that might hurt you? and yes: Keeping track of your medications? How often do you have trouble taking medicines the way you have been told to take them?: I always take medicine as prescribed How confident are you that you can control & manage most of your health problems?: very confident What is your race?: White Mini Mental State Exam (MMSE) Orientation What is the (year) (season) (date) (day) (month)?: year (2024), season (Spring), date (09/27/2024), day ( Thursday) and month (September) Where are we (state) (county) (town or city) (hospital) (floor)?: state ([place]), county ([place]), town or city ([place]) and hospital/clinic ([facility]) Score Score: 9 Activity of Daily Living Bathing - sponge bath, tub bath or shower: receives no assistance (gets in/out by self, if usual bathing means Dressing - getting clothes from closets & drawers, including inner/outer garments & fasteners.: gets clothes & gets completely dressed without help Toileting - going to the 'toilet room' for urine/bowel elimination & cleaning self/arranging clothes: goes to toilet room, cleans self, arranges clothes without help Transfer: moves in & out of bed and chair without help (may use support object) Continence: controls urination/bowel movements completely by self Feeding: feeds self without help Total Score: 0 Information obtained from: patient Using telephone: independent Traveling: independent Shopping: independent Preparing meals: independent Housework: independent Taking medicine: independent Managing money: independent PHQ-9 Over the last 2 weeks, how often have you been bothered by any of the following problems? 1. Little interest or pleasure in doing things: not at all 2. Feeling down, depressed, or hopeless: not at all 3. Trouble falling or staying asleep, or sleeping too much: several days 4. Feeling tired or having little energy: several days 5. Poor appetite or overeating: not at all 6. Feeling bad about yourself - or that you are a failure or have let yourself or your family down: not at all 7. Trouble concentrating on things, such as reading the newspaper or watching television: not at all 8. Moving or speaking so slowly that other people could have noticed. Or the opposite - being so fidgety or restless that you have been moving around a lot more than usual: not at all 9. Thoughts that you would be better off or of hurting yourself in some way: not at all Total score: 2 Depression Screening Interpretation: Negative Depression Screening Done: Yes 44740 - PHQ-9 Billing: Yes Source: Developed by Drs. Poncho Parsons, Loyda Ho, Checo Parekh and colleagues, with an educational rachelle from [employer] Physical Exam Vital Signs: Last Vital Signs Temp 98.1 F 09/27/24 09:23 Pulse 76 09/27/24 09:23 Resp 16 09/27/24 09:23 BP 124/72 09/27/24 09:23 Pulse Ox 95 09/27/24 09:23 Oxygen Delivery Method Room Air 09/27/24 09:23 BMI result Body Mass Index 26.3 Results Reviewed Results Reviewed: Name: Eveline Ortiz Age/Sex: 78/F : 1945 Unit#: [id number] Attend Dr: Irene Cerda MD Re09/24/24 Status: DEP REF Location: [facility] Disch: SPEC : [id number] TUTU: 09/24/24 STATUS: COMP REQ : [id number] RECD: 09/24/24-[address]: Irene Cerda MD COMP: 09/24/24 ENTERED: 09/24/24 [facility] DR: ORDERED: CBC Auto Diff Test Result Flag Reference WBC 8.0 4.8-10.8 X10*3/uL RBC 4.01 L 4.20-5.50 X10*6/uL HGB 11.5 L 12.0-16.0 g/dl HCT 36.0 L 37.0-47.0 % MCV 89.8 80.0-98.0 fL MCH 28.7 27.0-33.0 pg MCHC 31.9 31.0-35.0 g/dl RDW 14.1 11.0-16.0 % PLT 301 160-400 X10*3/uL MPV 10.5 9.4-12.3 fL Neut Pct Auto 53.6 45-73 % ImGran Pct Auto 0.3 0.0-0.4 % Lymp Pct Auto 31.6 20-40 % Mccreary Pct Auto 9.9 2-11 % Eos Pct Auto 3.5 0-4 % Baso Pct Auto 1.1 0-2 % NRBC Pct Auto 0.0 0.0-0.2 /100WBC ANC Neut Abs # 4.3 2.0-8.3 x10*3/uL ImGran Abs Auto 0.02 0.00-0.03 X10*3/uL Lymph Abs Auto 2.5 1.2-4.9 X10*3/uL Mccreary Abs Auto 0.8 0.1-1.2 X10*3/uL Eos Abs Auto 0.3 0.0-0.4 X10*3/uL Baso Abs Auto 0.1 0.0-0.2 X10*3/uL NRBC A Name: Eveline Ortiz Age/Sex: 78/F : 1945 Unit#: [id number] Attend Dr: Irene Cerda MD Re09/24/24 Status: DEP REF Location: [facility] Disch: SPEC : [id number] TUTU: 09/24/24 STATUS: COMP REQ : [id number] RECD: 09/24/24-[address]: Irene Cerda MD COMP: 09/24/24 ENTERED: 09/24/24 [facility] [address]: ORDERED: Met Prof Fast, IRON PROF, AST, ALT, Lipid Panel, Vitamin D 25-OH Test Result Flag Reference Sodium 141 135-145 mmol/L Potassium 5.2 H 3.3-5.1 mmol/L CL 107 96-108 mmol/L CO2 25 22-29 mmol/L Gap 14 12-20 BUN 22 H 9-16 mg/dL Creat 0.82 0.5-1.4 mg/dL eGFR > 60 Chronic Kidney Disease: Estimated GFR < 60 mL/min/1.73m2 Severe Kidney Disease: Estimated GFR < 15 mL/min/1.73m2 FBS 149 H 60-99 mg/dL A fasting glucose of 126 mg/dl or greater on more than one occasion is considered diagnostic of diabetes. CA 9.5 8.4-10.2 mg/dL Iron 76 30-160 mcg/dL TIBC 353 228-428 mcg/dL Saturation 22 15-50 % UIBC 277 ug/dL AST (GOT) 25 5-31 U/L ALT (GPT) 18 0-31 U/L Triglyceride 81 <150 mg/dL Desirable Triglyceride: less than 150 mg/dL Borderline High Triglyceride 150-199 mg/dL High Triglyceride: 200-499 mg/dL Very High Triglyceride: greater than or equal to 5OO mg/dL Cholesterol 133 <200 mg/dL Desirable Cholesterol: less than 200 mg/dL Borderline High Cholesterol: 200-239 mg/dL High Cholesterol: greater than 239 mg/dL LDL Calculated 58 <100 mg/dL Desirable LDL: less than 100 mg/dL Near Optimal/Above Optimal LDL: 110-129 mg/dL Borderline High LDL: 130-159 mg/dL High LDL: 160-189 mg/dL Very High LDL: greater than or equal to 190 mg/dL HDL 59 >40 mg/dL Desirable HDL: greater than 40 mg/dL Note: This HDL assay may give artificially low results in patients with liver disease. Vitamin D 25-OH 53.2 >30 ng/mL Health Based Reference Values* < 20 ng/mL Deficient 20-30 ng/mL Insufficient > 30 ng/mL Sufficient Laboratory Tests 09/24/24 09/24/24 08:47 08:55 Estimat Average Glucose 160 Hemoglobin A1c % 7.2 H Urine Creatinine 110.13 Urine Microalbumin 94.0 Microalb/Creat Ratio 85.3 H Assessment & Plan Assessment & Plan (1) Encounter for subsequent annual wellness visit (AWV) in Medicare patient: Code(s): Z00.00 - Encounter for general adult medical examination without abnormal findings Plan: Medical wellness checklist reviewed, discussed with patient and updated. Reminded to get her Shingrix vaccination and recommended to get RSV vaccine, gets yearly flu shot will request copy of her latest diabetes retinopathy screening from [facility]. Referred for her initial screening colonoscopy (2) Essential hypertension: Code(s): I10 - Essential (primary) hypertension Plan: Blood pressure at goal of less than 130/80. Continue with lisinopril 5 mg daily. Reinforced importance of following a low sodium diet, getting regular exercise, and lowering stress levels. (3) Dyslipidemia: Code(s): E78.5 - Hyperlipidemia, unspecified Plan: Reviewed recent fasting lipid profile with patient with levels within normal limits . Continue simvastatin 10 mg at bedtime , in addition to adherence to low-cholesterol diet and regular exercise, at least 30 minutes 3 to 4 times a week. Advised patient to make healthy food choices, eat more fruits, vegetables, whole grains, wild caught fish and low-fat dairy. Limit amount of meat and fried or fatty food products, as well as processed foods and fast foods. Follow-up scheduled with repeat fasting lipid panel in 6 months. (4) Normocytic anemia: Code(s): D64.9 - Anemia, unspecified Plan: Iron levels are within normal limits. Referred for her initial screening colonoscopy (5) Colon cancer screening: Code(s): Z12.11 - Encounter for screening for malignant neoplasm of colon Plan: Referred for initial colonoscopy to [facility] (6) Advanced directives, counseling/discussion: Code(s): Z71.89 - Other specified counseling Plan: Initiated the conversation about Advanced Directives. Advanced Directives help patients prepare for current and future decisions about their medical treatment and place of care. Discussed with patient that it is a process where a patients current condition and prognosis are reviewed, their wishes for information regarding their illness are elicited, and likely medical dilemmas are presented and options discussed. Healthcare proxy form and MOLST form completed today. These forms can be amended (7) Diabetes mellitus with microalbuminuria, without long-term current use of insulin: Code(s): E11.29 - Type 2 diabetes mellitus with other diabetic kidney complication; R80.9 - Proteinuria, unspecified Plan: Hemoglobin A1c slightly elevated today. Reinforced importance of doing regular exercise at least 30 minutes moderate intensity exercise 3 to 4 times a week. Continue with metformin 1000 mg twice a day and glipizide 5 mg twice a day. Reminded to get her yearly diabetes retinopathy screening, goes to [facility]. Will check fasting labs again in March 2025 Orders: Referrals Gastroenterology Referral D64.9 - Anemia, unspecified, Z12.11 - Encounter for screening for malignant neoplasm of colon Quality Reporting (2019) Depression/Bipolar (159/160/161/177) PHQ-9: Total score: 2 Coding Level of Care Code Medicare Subsequent (G0439) Diagnoses Encounter for subsequent annual wellness visit (AWV) in Medicare patient Z00.00 Essential hypertension I10 Dyslipidemia E78.5 Normocytic anemia D64.9 Colon cancer screening Z12.11 Advanced directives, counseling/discussion Z71.89 Diabetes mellitus with microalbuminuria, without long-term current use of insulin E11.29; R80.9 CPT Codes Advance Care Planning - Time spent: 16-45 minutes ([id number]) Additional Codes PHQ-9 - 22643 - PHQ-9 Billing: Yes ([id number]) Advance Care Planning Advance Care Planning discussion: Completed/Scanned Date of discussion: 09/27/24 Who was present: Patient Forms completed: Health Care Proxy and MOLST Time spent: 16-45 minutes Actual minutes spent: 10
[2024-09-27 09:23] VITALS: BP 124/72; PULSE 76; RESP 16; TEMP 36.7; O2SAT 95; BMI 26.3
--- OUTSIDE RECORDS SUMMARY | 2024-09-27 09:59 | XMS_ITS | Clinical Summary ---
Author Organization [facility] it Address [address] [place] [address] Care Team Providers Care Coupon Manifest Clerk Name Role Phone Unavailable Primary Care Provider Unavailabl e Social History Tobacco Use Types Packs/Day Years Used Date Smoking Tobacco: Never Assessed Comments Unknown Sex and Gender Information Value Date Recorded Sex Assigned at Not on file Legal Sex Female 12:43 AM EST Gender Identity Not on file Sexual Orientation Not on file Plan of Treatment Health Maintenance Due Date Last Done Comments DTaP,Tdap,and Td Vaccines (1 - Tdap) 12/21/1966 Pneumococcal Vaccine: 50+ Ye ars (1 of 1 - PCV) 12/21/1997 Zoster Vaccines (1 of 2) 12/21/1997 Depression Screening 04/13/2022 Falls Risk Assessment 04/13/2022 Hepatitis C Screening 04/13/2022 Osteoporosis Screening (Bone Density Screening) 04/13/2022 Social Influencers of Health Screening 04/13/2022 RSV Immunization Adult Patie nts (1 - 1-dose 75+ series) 12/21/2022 COVID-19 Vaccine ( - 2023-2 5 season) 2024 Influenza Vaccine (Season Ended) 2025 HIB Vaccines Aged Out No longer eligi ble based on patient's age to complete this topic HPV Vaccines Aged Out No longer eligi ble based on patient's age to complete this topic Hepatitis A Vaccines Aged Out No long er eligible based on patient's age to complete this topic Hepatitis B Vaccines Aged Out No long er eligible based on patient's age to complete this topic IPV Vaccines Aged Out No longer eligi ble based on patient's age to complete this topic MMR Vaccines Aged Out No longer eligi ble based on patient's age to complete this topic Meningococcal ACWY Vaccine Aged Out N o longer eligible based on patient's age to complete this topic Meningococcal B Vaccine Aged Out No l onger eligible based on patient's age to complete this topic RSV Immunization Patients Un felicia 20 months Aged Out No longer eligible b ased on patient's age to complete this topic Varicella Vaccines Aged Out No longer eligible based on patient's age to complete this topic
== END 2024-09-27 11:03 | disposition home or self-care (01) ==
LOC: HO.HMCC 09:15
PROVIDERS: PCP Internal Medicine; Visit Provider Internal Medicine
DX: Z00.00 Encounter for general adult medical examination without abnormal findings (principal); I10 Essential (primary) hypertension; E11.29 Type 2 diabetes mellitus with other diabetic kidney complication; E78.5 Hyperlipidemia, unspecified; D64.9 Anemia, unspecified; Z12.11 Encounter for screening for malignant neoplasm of colon; Z71.89 Other specified counseling; R80.9 Proteinuria, unspecified

== ENCOUNTER → 2024-09-27 09:14 | Outpatient (BNVA) | payer MEDICARE, SELFPAY | PROVIDERS: PCP Internal Medicine; Visit Provider Internal Medicine | DX: Z00.00 Encounter for general adult medical examination without abnormal findings (principal); I10 Essential (primary) hypertension; E78.5 Hyperlipidemia, unspecified; D64.9 Anemia, unspecified; E11.29 Type 2 diabetes mellitus with other diabetic kidney complication; R80.9 Proteinuria, unspecified; Z71.89 Other specified counseling | CPT/HCPCS: 96127 ==

== ENCOUNTER 2025-03-27 09:21 | Outpatient (REF) | payer MEDICARE, SELFPAY ==
[2025-03-27 13:06] LABS: MANUAL DIFF FLAG NO
[2025-03-27 13:36] LABS: Hematocrit 38.5 % (37.0-47.0); Hemoglobin 12.1 g/dl (12.0-16.0); Imm Gran Abs Auto 0.04 X10*3/uL (0.00-0.03); Imm Gran Pct Auto 0.3 % (0.0-0.4); Lymphocytes Absolute Auto 2.7 X10*3/uL (1.2-4.9); Mean Corpuscular HGB Conc 31.4 g/dl (31.0-35.0); Mean Corpuscular Hemoglobin 28.7 pg (27.0-33.0); Mean Corpuscular Volume 91.2 fL (80.0-98.0); NRBC Abs Auto 0.000 X10*3/uL (0.0-0.012); NRBC Pct Auto 0.0 /100WBC (0.0-0.2); Platelet Count 323 X10*3/uL (160-400); Red Blood Count 4.22 X10*6/uL (4.20-5.50); White Blood Count 11.5 X10*3/uL (4.8-10.8)
[2025-03-27 14:06] LABS: Anion Gap 13 (12-20); Aspartate Amino Transferase 25 U/L (5-31); Blood Urea Nitrogen 20 mg/dL (9-16); Calcium 9.9 mg/dL (8.4-10.2); Carbon Dioxide 26 mmol/L (22-29); Chloride 105 mmol/L (96-108); Estimated Glomerular Filt Rate 60; Ferritin 34 ng/mL (10-250); Iron 41 mcg/dL (30-160); Percent Iron Saturation 12 % (15-50); Potassium 5.2 mmol/L (3.3-5.1); Sodium 139 mmol/L (135-145); Total Iron Binding Capacity 353 mcg/dL (228-428); Unsaturated Iron Binding 312 ug/dL
[2025-03-27 14:07] LABS: Alanine Aminotransferase 19 U/L (0-31); Cholesterol 134 mg/dL (<200); HDL Cholesterol 54 mg/dL (>40); Triglycerides 104 mg/dL (<150)
== END 2025-03-27 09:22 | disposition home or self-care (01) ==
LOC: HO.HMGCLDS 09:21
PROVIDERS: PCP Internal Medicine; Visit Provider Internal Medicine
DX: Z13.21 Encounter for screening for nutritional disorder (principal); E11.29 Type 2 diabetes mellitus with other diabetic kidney complication; I10 Essential (primary) hypertension; R80.9 Proteinuria, unspecified; E78.5 Hyperlipidemia, unspecified; D64.9 Anemia, unspecified
CPT/HCPCS: 36415; 80048; 80061; 82306; 82728; 83036; 83540; 84450; 84460; 85025

== ENCOUNTER 2025-03-29 10:49 | Outpatient (REF) | payer MEDICARE, SELFPAY ==
[2025-03-29 13:58] LABS: Resp Syncy Virus RNA Qual PCR NEGATIVE (Negative); SARS COV2 PCR INHOUSE NEGATIVE (Negative)
== END 2025-03-29 10:50 | disposition home or self-care (01) ==
LOC: HO.LNP 10:49
PROVIDERS: PCP Internal Medicine; Visit Provider Internal Medicine
DX: E11.29 Type 2 diabetes mellitus with other diabetic kidney complication (principal); J06.9 Acute upper respiratory infection, unspecified; R80.9 Proteinuria, unspecified; E78.5 Hyperlipidemia, unspecified; I10 Essential (primary) hypertension
CPT/HCPCS: 87637; 96127; 99212

== ENCOUNTER 2025-03-29 10:49 | Outpatient (AMB) | payer MEDICARE, SELFPAY ==
[2025-03-29 10:54] VITALS: BP 146/72; PULSE 85; RESP 16; TEMP 36.5; O2SAT 95; BMI 25.2
--- NOTE | 2025-03-29 10:54 | MHC.PC.OV ---
Vital Signs 03/29/25 10:54 Height 5 ft 4 in Weight 147 lb BMI 25.2 BP 146/72 H Blood Pressure Location Rt brachial Position Sitting Respiration 16 Pulse 85 Pulse Source Pulse Oximeter Temp 97.7 F Temp Source Oral Pulse Oximetry (%) 95 Oxygen Delivery Method Room Air Intake Visit Reasons: 6m follow Intake Note: Pt is here today for his 6mo. 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 Allergies No Known Allergies Allergy (Verified 03/29/25 11:23) Medication List - Last Reconciled 03/29/25 by Irene Cerda MD blood sugar diagnostic (FreeStyle Lite Strips) USE 1 STRIP TO CHECK FASTING BLOOD GLUCOSE ONCE DAILY IN THE MORNING cholecalciferol (vitamin D3) 50 mcg PO DAILY ferrous fumarate 325 mg PO DAILY glipizide 5 mg PO BID 90 days lancets (FreeStyle Lancets) Check fasting blood sugar once a day before meal lisinopril 5 mg PO DAILY metformin 1,000 mg PO BID polyethylene glycol 3350 (Miralax) 17 grams PO DAILY PRN simvastatin 10 mg PO BEDTIME Tobacco use date assessed: 03/29/25 Fall risk assessment: No Falls in past year Last assessed Fall Risk: 03/29/25 Dental Screening Dental Screen Date: 03/29/25 Did you have a dental visit in the last 12 months?: Yes Did you have a dental problem in the last 6 months where you did not have access to dental care?: No Was dental information given to patient?: Patient has dentist HPI 6m follow HPI Details The patient is a 79-year-old female presenting with a cough. The cough began a few days ago, after a field trip on Thursday. She endorses a slight headache but denies fever, sputum production, body aches, sore throat, or chest pain. Recent blood work from March 27 revealed a slightly elevated white blood cell count, but no longer anemic. Her morning blood sugar reading was elevated at 165, which is higher than her usual range of 110-120. The patient is currently taking metformin 1000 mg twice a day and glipizide for her diabetes. Her kidney function, cholesterol, and vitamin D levels are normal. [facility] Medical History (Updated 03/29/25 @ 11:40 by Irene Cerda MD) Diabetes mellitus with microalbuminuria, without long-term current use of insulin Normocytic anemia Constipation Essential hypertension Dyslipidemia Surgical History No pertinent past surgical history Social History Housing: House Alcohol intake: never Patient Tobacco Use Status: Never used Tobacco e-Cigarette/Vaping Use: Never Used service: No Current occupational status: retired Cognitive needs: No Hearing needs: No Vision needs: No Questionnaire PHQ-9 Over the last 2 weeks, how often have you been bothered by any of the following problems? 1. Little interest or pleasure in doing things: not at all 2. Feeling down, depressed, or hopeless: not at all 3. Trouble falling or staying asleep, or sleeping too much: several days 4. Feeling tired or having little energy: several days 5. Poor appetite or overeating: not at all 6. Feeling bad about yourself - or that you are a failure or have let yourself or your family down: not at all 7. Trouble concentrating on things, such as reading the newspaper or watching television: not at all 8. Moving or speaking so slowly that other people could have noticed. Or the opposite - being so fidgety or restless that you have been moving around a lot more than usual: not at all 9. Thoughts that you would be better off or of hurting yourself in some way: not at all Total score: 2 Depression Screening Interpretation: Negative Depression Screening Done: Yes Source: Developed by Drs. Poncho Parsons, Loyda Ho, Checo Parekh and colleagues, with an educational rachelle from [employer]. Thrive Questionnaire Date Thrive assessed: 03/29/25 I am a: Patient What is your living situation today?: I have a steady place to live Within the past 12 months, did the food you bought not last and you didn't have the money to get more?: Never true Within the past 12 months, did you worry whether your food would run out before you got money to buy more?: Never true Do you have trouble paying for medicines?: No Do you have trouble getting transportation to medical appointments?: No Do you have trouble paying your heating and electricity bill?: No Do you have trouble taking care of your child, family member or friend?: No Do you have trouble with day-to-day activities such as bathing, preparing meals, shopping, managing finances, etc.?: No Are you currently unemployed and looking for a job?: No Are you interested in more education?: No THRIVE Score: 0 AUDIT C Alcohol Use Questionnaire (AUDIT-C) 1. How often do you have a drink containing alcohol?: Never Total Score: 0 Score Reviewed/Action Taken: Yes VICENTE-7 AMB Questionnaire VICENTE-7 Date VICENTE - 7 assessed: 03/29/25 Feeling nervous, anxious, or on edge: 0 = Not at all Not being able to stop or control worryin = Not at all Worrying too much about different things: 0 = Not at all Trouble relaxin = Not at all Being so restless that it is hard to sit still: 0 = Not at all Becoming easily annoyed or irritable: 0 = Not at all Feeling afraid as if something awful might happen: 0 = Not at all Total VICENTE-7 score (0-4 normal; 5-9 mild; 10-14 moderate; 15-21 severe): 0 Source: Developed by Drs. Poncho Parsons, Loyda Ho, Checo Parekh and colleagues, with an educational rachelle from [employer]. VICENTE-7 Assessment Billing VICENTE-7 Assessment Tool: VICENTE-7 Assessment [id number] Review of Systems Const Reports as per HPI Eyes Details: Goes to [facility] for her routine eye exam/diabetes retinopathy screening Denies change in vision ENT Reports as per HPI Card Denies chest pain, Denies rapid heart rate, Denies irregular heart rhythm, Denies leg edema and Denies lightheadedness Resp Reports as per HPI GI Denies melena, Denies hematochezia, Denies early satiety, Denies nausea and Denies vomiting Denies urinary frequency, Denies difficulty voiding, Denies nipple discharge, Denies dysuria, Denies urinary incontinence and Denies urinary urgency Musc Denies joint swelling, Denies numbness and Denies tingling Skin/Breast Denies breast swelling, Denies breast pain, Denies breast mass, Denies nipple discharge and Denies rash Neuro Denies Abnormal speech present, Denies numbness and Denies tingling Psych Reports no additional complaints Endo Reports no additional complaints, Denies heat intolerance, Denies polyphagia, Denies polydipsia and Denies polyuria Arvin/Lymph Denies easy bleeding and Denies easy bruising Aller/Immun Reports no additional complaints Physical exam (Primary Care) Vital Signs: Last Vital Signs Temp 97.7 F 03/29/25 10:54 Pulse 85 03/29/25 10:54 Resp 16 03/29/25 10:54 BP 146/72 H 03/29/25 10:54 Pulse Ox 95 03/29/25 10:54 Oxygen Delivery Method Room Air 03/29/25 10:54 BMI result Body Mass Index 25.2 Tobacco/Smoking Status: Tobacco use Status Tobacco use date assessed 03/29/25 03/29/25 11:01 Patient Tobacco Use Status Never used Tobacco 03/29/25 11:01 e-Cigarette/Vaping Use Never Used 03/29/25 11:01 PHQ-9: PHQ-9 Score PHQ-9: Total score 2 03/29/25 11:23 Depression Screening Interpretation: Negative Thrive Assessment: Date of Thrive Assessment Date Thrive assessed 03/29/25 03/29/25 11:03 Const Other: Alert oriented x3, no acute distress noted ambulatory with normal gait HENWV Mouth: Normal oral and palatal mucosa present and moist mucous membranes Eyes General: appearance normal, both eyes and all related structures Neck Neck: Yes full ROM, Yes no lymphadenopathy and Yes supple Resp Auscultation: clear to auscultation bilaterally Cardio Other: S1-S2 present regular rate and rhythm GI Palpation (GI): Soft to palpation, no guarding and no masses General: Yes no CVA tenderness Back/Spine/Pelvis Back: no CVA tenderness and No back tenderness Skin General skin exam: no rashes or lesions noted Neuro General: gait normal, tone normal, moves all extremities, no focal motor deficits, CN's II-XI intact bilaterally and normal sensation to monofilament Speech: No Abnormal speech present Extrem General: Yes full ROM, Yes no joint enlargement, Yes no pedal edema and Yes normal gait Results Reviewed Results Reviewed: Name: Eveline Ortiz Age/Sex: 79/F : 1945 Unit#: [id number] Attend Dr: Irene Cerda MD Re03/27/25 Status: DEP REF Location: [facility] Disch: SPEC : [id number] TUTU: 03/27/25 STATUS: COMP REQ : [id number] RECD: 03/27/[address]: Irene Cerda MD COMP: 03/27/25 ENTERED: 03/27/[address]: ORDERED: Met Prof Fast, IRON PROF, Ferritin, AST, ALT, Lipid Panel, Vitamin D 25- Test Result Flag Reference Sodium 139 135-145 mmol/L Potassium 5.2 H 3.3-5.1 mmol/L CL 105 96-108 mmol/L CO2 26 22-29 mmol/L Gap 13 12-20 BUN 20 H 9-16 mg/dL Creat 0.91 0.5-1.4 mg/dL eGFR 60 Chronic Kidney Disease: Estimated GFR < 60 mL/min/1.73m2 Severe Kidney Disease: Estimated GFR < 15 mL/min/1.73m2 FBS 165 H 60-99 mg/dL A fasting glucose of 126 mg/dl or greater on more than one occasion is considered diagnostic of diabetes. CA 9.9 8.4-10.2 mg/dL Iron 41 30-160 mcg/dL TIBC 353 228-428 mcg/dL Saturation 12 L 15-50 % UIBC 312 ug/dL Ferritin 34 10-250 ng/mL AST (GOT) 25 5-31 U/L ALT (GPT) 19 0-31 U/L Triglyceride 104 <150 mg/dL Desirable Triglyceride: less than 150 mg/dL Borderline High Triglyceride 150-199 mg/dL High Triglyceride: 200-499 mg/dL Very High Triglyceride: greater than or equal to 5OO mg/dL Cholesterol 134 <200 mg/dL Desirable Cholesterol: less than 200 mg/dL Borderline High Cholesterol: 200-239 mg/dL High Cholesterol: greater than 239 mg/dL LDL Calculated 60 <100 mg/dL Desirable LDL: less than 100 mg/dL Near Optimal/Above Optimal LDL: 110-129 mg/dL Borderline High LDL: 130-159 mg/dL High LDL: 160-189 mg/dL Very High LDL: greater than or equal to 190 mg/dL HDL 54 >40 mg/dL Desirable HDL: greater than 40 mg/dL Note: This HDL assay may give artificially low results in patients with liver disease. Vitamin D 25-OH 62.1 >30 ng/mL Health Based Reference Values* < 20 ng/mL Deficient 20-30 ng/mL Insufficient > 30 ng/mL Sufficient Laboratory Tests 03/27/25 10:03 Estimat Average Glucose 166 Hemoglobin A1c % 7.4 H Name: Eveline Ortiz Age/Sex: 79/F : 1945 Unit#: [id number] Attend Dr: Irene Cerda MD Re03/27/25 Status: DEP REF Location: [facility] Disch: SPEC : [id number] TUTU: 03/27/25 STATUS: COMP REQ : [id number] RECD: 03/27/[address]: Irene Cerda MD COMP: 03/27/25 ENTERED: 03/27/[address] [facility] [address]: ORDERED: CBC Auto Diff Test Result Flag Reference WBC 11.5 H 4.8-10.8 X10*3/uL RBC 4.22 4.20-5.50 X10*6/uL HGB 12.1 12.0-16.0 g/dl HCT 38.5 37.0-47.0 % MCV 91.2 80.0-98.0 fL MCH 28.7 27.0-33.0 pg MCHC 31.4 31.0-35.0 g/dl RDW 13.8 11.0-16.0 % PLT 323 160-400 X10*3/uL MPV 11.0 9.4-12.3 fL Neut Pct Auto 64.8 45-73 % ImGran Pct Auto 0.3 0.0-0.4 % Lymp Pct Auto 23.0 20-40 % Ware Pct Auto 8.9 2-11 % Eos Pct Auto 2.3 0-4 % Baso Pct Auto 0.7 0-2 % NRBC Pct Auto 0.0 0.0-0.2 /100WBC ANC Neut Abs # 7.5 2.0-8.3 x10*3/uL ImGran Abs Auto 0.04 H 0.00-0.03 X10*3/uL Lymph Abs Auto 2.7 1.2-4.9 X10*3/uL Ware Abs Auto 1.0 0.1-1.2 X10*3/uL Eos Abs Auto 0.3 0.0-0.4 X10*3/uL Baso Abs Auto 0.1 0.0-0.2 X10*3/uL NRBC Abs Auto 0.000 0.0-0.012 X10*3/uL Coding Level of Care Code Est Pt Level 4 (13290) Diagnoses Upper respiratory infection with cough and congestion J06.9 Diabetes mellitus with microalbuminuria, without long-term current use of insulin E11.29; R80.9 Dyslipidemia E78.5 Essential hypertension I10 Additional Codes VICENTE-7 Assessment Billing - VICENTE-7 Assessment Tool: VICENTE-7 Assessment 21222 ([id number]) Assessment & Plan Assessment & Plan (1) Upper respiratory infection with cough and congestion: Code(s): J06.9 - Acute upper respiratory infection, unspecified (2) Diabetes mellitus with microalbuminuria, without long-term current use of insulin: Code(s): E11.29 - Type 2 diabetes mellitus with other diabetic kidney complication; R80.9 - Proteinuria, unspecified Category: Medical (3) Dyslipidemia: Code(s): E78.5 - Hyperlipidemia, unspecified Category: Medical (4) Essential hypertension: Code(s): I10 - Essential (primary) hypertension Category: Medical Plan 1. Acute Upper Respiratory Infection The patient presents with a cough and a slight headache that started a few days ago. Recent labs show leukocytosis, consistent with an infection. A nasopharyngeal swab was collected to test for RSV and COVID-19, as a viral etiology is suspected. Antibiotics will be held pending test results, as they are ineffective against viruses. The patient was advised to use [id number] cough medicine for symptomatic relief. 2. Type 2 Diabetes Mellitus with Hyperglycemia The patient's blood glucose was elevated at 165 this morning. Her medication regimen will be adjusted by increasing the morning dose of glipizide to 10 mg and maintaining the 5 mg dose at night, while continuing metformin 1000 mg twice daily. The patient was educated on the risk of hypoglycemia with glipizide and advised to take it with meals. 3. Dyslipidemia Latest fasting lipids are within normal limits, continued on simvastatin 10 mg daily 4. Essential hypertension Blood pressure today elevated, likely due to her URI with constant coughing. Will continue on lisinopril 5 mg daily. Advised to check blood pressure at home, and schedule an appointment to if blood pressure persistently above 130/90. Patient was informed and verbally consented to the use of an ambient scribe for clinic note documentation during this visit. Orders: Orders Lipid Panel 07/09/25 I10 - Essential (primary) hypertension, E11.29 - Type 2 diabetes mellitus with other diabetic kidney complication, R80.9 - Proteinuria, unspecified, E78.5 - Hyperlipidemia, unspecified Basic Metabolic Panel Fasting 07/09/25 I10 - Essential (primary) hypertension, E11.29 - Type 2 diabetes mellitus with other diabetic kidney complication, R80.9 - Proteinuria, unspecified, E78.5 - Hyperlipidemia, unspecified Aspartate Amino Transferase 07/09/25 I10 - Essential (primary) hypertension, E11.29 - Type 2 diabetes mellitus with other diabetic kidney complication, R80.9 - Proteinuria, unspecified, E78.5 - Hyperlipidemia, unspecified Hemoglobin A1c 07/09/25 I10 - Essential (primary) hypertension, E11.29 - Type 2 diabetes mellitus with other diabetic kidney complication, R80.9 - Proteinuria, unspecified, E78.5 - Hyperlipidemia, unspecified SARS-CoV2/FLU/RSV 03/29/25 J06.9 - Acute upper respiratory infection, unspecified Microalbumin, Random (w Creat) 07/09/25 I10 - Essential (primary) hypertension, E11.29 - Type 2 diabetes mellitus with other diabetic kidney complication, R80.9 - Proteinuria, unspecified, E78.5 - Hyperlipidemia, unspecified Alanine Aminotransferase 07/09/25 I10 - Essential (primary) hypertension, E11.29 - Type 2 diabetes mellitus with other diabetic kidney complication, R80.9 - Proteinuria, unspecified, E78.5 - Hyperlipidemia, unspecified Vitamin D 25-OH Total 07/09/25 I10 - Essential (primary) hypertension, E11.29 - Type 2 diabetes mellitus with other diabetic kidney complication, R80.9 - Proteinuria, unspecified, E78.5 - Hyperlipidemia, unspecified
== END 2025-03-29 11:43 | disposition home or self-care (01) ==
LOC: HO.HMCC 10:50
PROVIDERS: PCP Internal Medicine; Visit Provider Internal Medicine
DX: J06.9 Acute upper respiratory infection, unspecified (principal); E11.29 Type 2 diabetes mellitus with other diabetic kidney complication; R80.9 Proteinuria, unspecified; E78.5 Hyperlipidemia, unspecified; I10 Essential (primary) hypertension